=== PATIENT | male | born 1950 | race Caucasian/White ===

== ENCOUNTER 2016-12-22 13:18 | Inpatient (IN) | payer MEDICARE, OTHER ==
[~2016-12-22] VITALS: Ht 182.9 cm; Wt 63.0 kg
--- NOTE | 2016-12-22 13:48 | ERD ---
ER Documentation Chief Complaint Date/Time DATE: 12/22/16 TIME: 13:46 Chief Complaint BIB RA39 LEFT ELBOW INJURY HPI Patient is a 66-year-old male who presents with pain and swelling to the left elbow after mechanical slip and fall. Patient is left-hand dominant. He denies head trauma, chest or abdominal trauma. He denies loss of consciousness. He denies dizziness. He denies other injury. A staff member in the home where he lives witnessed the fall and states that he tripped on a carpet. The patient is on Coumadin. ROS All systems reviewed and are negative except as per history of present illness. Medications Home Meds Reported Medications Losartan Potassium* (Losartan Potassium*) 50 Mg Tablet, 50 MG PO DAILY, TAB 12/22/16 Simvastatin* (Zocor*) 40 Mg Tablet, 40 MG PO QHS, #30 TAB 12/22/16 Warfarin Sodium* (Coumadin*) 5 Mg Tablet, 5 MG PO DAILY, TAB 12/22/16 Digoxin* (Digitek*) 250 Mcg Tablet, 0.25 MG PO DAILY, TAB 12/22/16 Allergies Allergies: Coded Allergies: No Known Allergy (Unverified , 12/22/16) PMhx/Soc Past medical history: "Brittle bone disease ", valvular heart disease Past surgical history: Denies Social history: Denies tobacco or alcohol. History of Surgery: No Anesthesia Reaction: No Hx Neurological Disorder: No Hx Respiratory Disorders: No Hx Cardiac Disorders: Yes (heart valve defect) Hx Psychiatric Problems: No Hx Miscellaneous Medical Probl: Yes (osteogenesis,MULTIPLE FX) Hx Alcohol Use: No Hx Substance Use: No Hx Tobacco Use: No Smoking Status: Never smoker FmHx Family History: No coronary disease, No diabetes Physical Exam Vitals Vital Signs Date Time Temp Pulse Resp B/P Pulse Ox O2 Delivery O2 Flow Rate FiO2 12/22/16 17:34 98.3 91 20 129/80 98 Room Air 12/22/16 13:23 98.0 87 16 135/84 97 Physical Exam Const: Alert, no acute distress Head: Atraumatic Eyes: Normal Conjunctiva, no pallor, no icterus ENT: Normal External Ears, Nose and Mouth. Moist mucous membranes Neck: Full range of motion..~ No meningismus. No midline tenderness Resp: Clear to auscultation bilaterally, no wheezes, no rales Cardio: Regular rate and rhythm, no murmurs Abd: Soft, non tender, non distended. Normal bowel sounds Skin: No petechiae or rashes Back: No midline or flank tenderness Ext: No cyanosis, or edema. Deformity to left elbow with tenderness. Skin intact. Compartments soft. 2+ radial pulse. Moves and feels all digits. Neur: Awake and alert, cranial nerves II through XII intact bilaterally, strength and sensation full in 4 extremities. Psych: Normal Mood and Affect Result Diagram: 12/22/16 1410 12/22/16 1410 Results 24 hrs Laboratory Tests Test 12/22/16 14:10 White Blood Count 7.010^3/ul Red Blood Count 4.5710^6/ul Hemoglobin 14.8g/dl Hematocrit 42.1% Mean Corpuscular Volume 92.1fl Mean Corpuscular Hemoglobin 32.4pg Mean Corpuscular Hemoglobin Concent 35.2g/dl Red Cell Distribution Width 12.5% Platelet Count 69076^3/UL Mean Platelet Volume 10.7fl Neutrophils % 71.3% Lymphocytes % 14.1% Monocytes % 11.2% Eosinophils % 2.4% Basophils % 0.4% Nucleated Red Blood Cells % 0.0/100WBC Neutrophils # 5.010^3/ul Lymphocytes # 1.010^3/ul Monocytes # 0.810^3/ul Eosinophils # 0.210^3/ul Basophils # 0.010^3/ul Nucleated Red Blood Cells # 0.010^3/ul Prothrombin Time 28.9Sec Prothrombin Time Ratio 2.3 INR International Normalized Ratio 2.68 Activated Partial Thromboplast Time 34.9Sec Sodium Level 141mmol/L Potassium Level 3.9mmol/L Chloride Level 102mmol/L Carbon Dioxide Level 26mmol/L Anion Gap 17 Blood Urea Nitrogen 19mg/dl Creatinine 0.90mg/dl Glucose Level 160mg/dl Calcium Level 8.9mg/dl Current Medications Medications (Trade) Dose Ordered Sig/René Route PRN Reason Start Time Stop Time Status Last Admin Dose Admin Acetaminophen/ Hydrocodone Bitart ([place] (10/325)) 1 tab ONCE ONCE PO 12/22/16 14:00 12/22/16 14:01 DC 12/22/16 14:45 Morphine Sulfate (morphine) 4 mg ONCE STAT IV 12/22/16 16:22 12/22/16 16:23 DC 12/22/16 16:43 Ondansetron HCl (Zofran Inj) 4 mg BRIDGE ORDER PRN IV NAUSEA AND/OR VOMITING 12/22/16 17:30 12/23/16 17:29 Acetaminophen (Tylenol Tab) 650 mg ER BRIDGE PRN PO MILD PAIN/FEVER 12/22/16 17:30 12/23/16 17:29 IV Flush (NS 3 ml) 3 ml PER PROTOCOL IV 12/22/16 17:30 Ondansetron HCl (Zofran Inj) 4 mg Q6H PRN IV NAUSEA AND/OR VOMITING 12/22/16 17:30 Acetaminophen (Tylenol Tab) 650 mg Q6H PRN PO PAIN LEVEL 1-3 OR FEVER 12/22/16 17:30 Acetaminophen/ Hydrocodone Bitart ([place] (5/325)) 1 tab Q6H PRN PO MODERATE PAIN LEVEL 4-6 12/22/16 17:30 Morphine Sulfate (morphine) 2 mg Q4H PRN IV SEVERE PAIN LEVEL 7-10 12/22/16 17:30 Docusate Sodium (Colace) 100 mg Q12H PRN PO CONSTIPATION 12/22/16 17:30 Magnesium Hydroxide (Milk Of Mag) 30 ml DAILY PRN PO CONSTIPATION 12/22/16 17:30 Sodium Biphosphate/ Sodium Phosphate (Fleet Enema) 133 ml DAILY PRN [place] CONSTIPATION 12/22/16 17:30 Pantoprazole 40 mg 40 mg DAILY@06 PO 12/23/16 06:00 Sodium Chloride (1/2 NS) 1,000 ml @ 75 mls/hr [id number] IV 12/22/16 17:17 Lorazepam (Ativan) 0.5 mg Q6H PRN IV ANXIETY 12/22/16 17:30 Albuterol/ Ipratropium (Duoneb) 3 ml Q4H RESP THERAPY PRN HHN SHORTNESS OF BREATH 12/22/16 17:30 Hydralazine HCl (Apresoline) 10 mg Q6H PRN IV ELEVATED BLOOD PRESSURE 12/22/16 17:30 Nitroglycerin (Nitroglycerin (Sl Tab) 0.4 Mg) 1 tab Q5M PRN SL ANGINA 12/22/16 17:30 Digoxin (Digoxin) 0.25 mg DAILY PO 12/23/16 09:00 Atorvastatin Calcium (Lipitor) 20 mg DAILY@21 PO 12/22/16 21:00 Phytonadione (Vitamin K) 2.5 mg ONCE ONCE IM 12/22/16 17:30 12/22/16 17:31 DC Procedures/MDM MDM: Patient is a 66-year-old male with mechanical ground-level fall and injury to his elbow. The patient has evidence of a comminuted and displaced fracture. Serial neurovascular exams are unremarkable. He does have a large hemarthrosis and hematoma, and he is on warfarin with a INR of 2.7. Type and screen was sent for likely reversal of anticoagulation prior to surgical repair. The patient was splinted in a long-arm posterior splint. There are no signs of secondary injury and no signs of head trauma. I discussed the case with Dr. Maxwell, the orthopedic surgeon on-call, and he will arrange for surgery later today or tomorrow. The patient will be admitted by Dr. Ceja. Departure Diagnosis: Primary Impression: Supracondylar fracture of humerus Encounter type: initial encounter Fracture type: closed Laterality: left Qualified Code: S42.412A - Supracondylar fracture of humerus, left, closed, initial encounter Additional Impressions: Warfarin-induced coagulopathy Atrial fibrillation Atrial fibrillation type: chronic Qualified Code: I48.2 - Chronic atrial fibrillation Condition: Stable ROMAN LOWERY MD Dec 22, 2016 13:48
[2016-12-22] MEDS ORDERED: HYDROCODONE/APAP (10/325) TAB PO ONE (14:00)
[2016-12-22 14:30] LABS: BASOPHILS % 0.4 % (0.0-2.0); EOSINOPHILS # 0.2 10^3/ul (0.0-0.5); EOSINOPHILS % 2.4 % (0.0-7.0); HEMATOCRIT 42.1 % (42.0-52.0); HEMOGLOBIN 14.8 g/dl (14.0-18.0); LYMPHOCYTES % 14.1 % (15.0-51.0); MEAN CORPUSCULAR HEMOGLOBIN 32.4 pg (29.0-33.0); MEAN CORPUSCULAR HGB CONC 35.2 g/dl (32.0-37.0); MEAN CORPUSCULAR VOLUME 92.1 fl (82.0-101.0); MEAN PLATELET VOLUME 10.7 fl (7.4-10.4); MONOCYTE # 0.8 10^3/ul (0.3-0.9); MONOCYTES % 11.2 % (0.0-11.0); NEUTROPHILS % 71.3 % (39.0-77.0); PLATELET COUNT 157 10^3/UL (140-415); RED BLOOD COUNT 4.57 10^6/ul (4.70-6.10); RED CELL DISTRIBUTION WIDTH 12.5 % (11.5-14.5)
--- NOTE | 2016-12-22 14:39 | RADRPT ---
PROCEDURE: XR Elbow. CLINICAL INDICATION: Trauma TECHNIQUE: Three views of the left elbow are available for review COMPARISON: None available FINDINGS: There is a comminuted and displaced fracture involving the condylar/supracondylar region of the norma nino. There is posterior angulation of the distal fragments. The capitellum and trochlea may still be aligned with the proximal radius and ulna, although evaluation is limited due to fragment overlap . The fracture is age indeterminate. There is marked soft tissue swelling. IMPRESSION: 1. Comminuted, dorsally displaced and angulated fracture of the supracondylar/transcondylar region of the distal humerus, as detailed above. 2. Marked soft tissue swelling. RPTAT: TT .Fady Bills MD, Date Time Electronically viewed and signed by .Fady Bills MD, on 12/22/2016 14:39 .d/
[2016-12-22 14:51] LABS: INR 2.68; PROTIME 28.9 Sec (12.2-14.2); PT RATIO 2.3
[2016-12-22 14:52] LABS: PARTIAL THROMBOPLASTIN TIME 34.9 Sec (25.0-35.0)
[2016-12-22 15:04] LABS: CALCIUM 8.9 mg/dl (8.4-10.2); CREATININE 0.9 mg/dl (0.61-1.24); POTASSIUM 3.9 mmol/L (3.5-5.1)
[2016-12-22] MEDS ORDERED: morphine 4 MG/ML VIAL IV STA (16:22)
[2016-12-22] MEDS ORDERED: DIGO250T PO (16:39)
[2016-12-22] MEDS ORDERED: LOSA50TA6 PO (16:40)
[2016-12-22] MEDS ORDERED: SIMV40TA2 PO (16:40)
[2016-12-22] MEDS ORDERED: WARF5TAB72 PO (16:40)
[2016-12-22] MEDS ORDERED: ACETAMINOPHEN 325 MG TAB PO PRN ×2 (17:30)
[2016-12-22] MEDS ORDERED: PHYTONADIONE 10 MG/ML INJ IM ONE (17:30)
[2016-12-22] MEDS ORDERED: NA PHOSPHATE/BIPHOS 133 ML ENEMA PR PRN (17:30)
[2016-12-22] MEDS ORDERED: ALBUTEROL/IPRATROPIUM (NEB) 3 ML AMP HHN PRN (17:30)
[2016-12-22] MEDS ORDERED: NITROGLYCERIN (SL) 0.4 MG TAB SL PRN (17:30)
[2016-12-22] MEDS ORDERED: hydrALAzine 20 MG INJ IV PRN (17:30)
[2016-12-22] MEDS ORDERED: ONDANSETRON 4 MG INJ IV PRN ×2 (17:30)
[2016-12-22] MEDS ORDERED: DOCUSATE SODIUM 100 MG CAP PO PRN (17:30)
[2016-12-22] MEDS ORDERED: HYDROCODONE/APAP (5/325) TAB PO PRN (17:30)
[2016-12-22] MEDS ORDERED: NACL 0.9% 3 ML SYG IV SCH (17:30)
[2016-12-22] MEDS ORDERED: LORAZEPAM 2 MG INJ IV PRN (17:30)
--- NOTE | 2016-12-22 19:25 | HP ---
Date/Time of Note Date/Time of Note DATE: 12/22/16 TIME: 19:18 Assessment/Plan VTE Prophylaxis VTE Prophylaxis Intervention: SCD's Assessment/Plan Chief Complaint/Hosp Course Assessment and plan: 66-year-old male history of valvular heart surgery, atrial fibrillation, on Coumadin, who presents status post fall with left elbow fracture, and supratherapeutic INR 2.68. 1. Status post fall with elbow fracture: We will admit patient to [facility] floor. Follow-up orthopedic surgery consult. Likely patient will benefit from possible surgery. Check TSH A1c lipid panel. Pain control medications. 2. Supratherapeutic INR: We will hold patient's Coumadin for now. We will give vitamin K 2.5 mg 1 as well given the fact he may need surgery. Check INR later this evening and in the morning 3. Atrial fibrillation: Monitor heart rate for now, as mentioned above holding Coumadin 4. History of valvular heart surgery: Monitor for now, if there are any abnormalities consider cardiology consult 5. Hypertension: Continue current medications Problems: HPI/ROS Admit Date/Time Admit Date/Time Hx of Present Illness 66-year-old male past medical history of atrial fibrillation on Coumadin at home , valvular heart surgery, questionable high cholesterol, questionable hypertension, "brittle bone disease ", who presents status post fall. It is unclear if the patient was at home or at work, patient gives limited history, per ER documentation he apparently was at some kind of convalescent home and tripped and fell over the carpet. Denied any chest pain or palpitations or dizziness before or after the event. When he arrived to the ER, x-ray of the left elbow showed a comminuted, dorsally displaced and angulated fracture of the supracondylar/transcondylar region of the distal humerus. Orthopedic surgery team was consulted who are going to come and evaluate the patient. Patient also was found with an elevated INR of 2.68. No signs of any upper or lower GI bleeding. Full review of systems cannot be obtained other than what has been mentioned in this HPI presently. PMH/Family/Social Past Surgical History Past Surgical Hx: other (Valvular heart surgery, knee surgery, hip surgery) Family History Significant Family History: no pertinent family hx Social History Alcohol Use: none Smoking Status: Never smoker Drug Use: none Exam/Review of Systems Vital Signs Vitals Vital Signs Date Time Temp Pulse Resp B/P Pulse Ox O2 Delivery O2 Flow Rate FiO2 12/22/16 18:30 82 20 149/82 98 Room Air 12/22/16 17:34 98.3 Exam Exam Gen: Alert, no acute distress Head: Atraumatic Eyes: Normal Conjunctiva, no pallor, no icterus ENT: Normal External Ears, Nose and Mouth. Moist mucous membranes Neck: Full range of motion..~ No meningismus. No midline tenderness Resp: Clear to auscultation bilaterally, no wheezes, no rales Cardio: Regular rate and rhythm, no murmurs Abd: Soft, non tender, non distended. Normal bowel sounds Back: No midline or flank tenderness Ext: No cyanosis, or edema. Left elbow covered in sling, skin appears intact. 2+ radial pulse. Moves and feels all digits. Neur: Awake and alert, cranial nerves II through XII intact bilaterally, strength and sensation full in 4 extremities. Psych: Normal Mood and Affect Labs Result Diagram: 12/22/16 1410 12/22/16 1410 Medications Medications Current Medications Ondansetron HCl (Zofran Inj) 4 mg Q6H PRN IV NAUSEA AND/OR VOMITING; Start 12/22 at 17:30 Acetaminophen (Tylenol Tab) 650 mg Q6H PRN PO PAIN LEVEL 1-3 OR FEVER; Start at 17:30 Acetaminophen/ Hydrocodone Bitart ([place] (5/325)) 1 tab Q6H PRN PO MODERATE PAIN LEVEL 4-6; Start 12/22/16 at 17:30 Morphine Sulfate (morphine) 2 mg Q4H PRN IV SEVERE PAIN LEVEL 7-10; Start at 17:30 Docusate Sodium (Colace) 100 mg Q12H PRN PO CONSTIPATION; Start 12/22/16 at 17: 30 Magnesium Hydroxide (Milk Of Mag) 30 ml DAILY PRN PO CONSTIPATION; Start at 17:30 Sodium Biphosphate/ Sodium Phosphate (Fleet Enema) 133 ml DAILY PRN [place] CONSTIPATION; Start 12/22/16 at 17:30 Pantoprazole 40 mg 40 mg DAILY@06 PO ; Start 12/23/16 at 06:00 Sodium Chloride (1/2 NS) 1,000 ml @ 75 mls/hr [id number] IV ; Start 12/22/16 at 17: 17 Lorazepam (Ativan) 0.5 mg Q6H PRN IV ANXIETY; Start 12/22/16 at 17:30 Hydralazine HCl (Apresoline) 10 mg Q6H PRN IV ELEVATED BLOOD PRESSURE; Start at 17:30 Nitroglycerin (Nitroglycerin (Sl Tab) 0.4 Mg) 1 tab Q5M PRN SL ANGINA; Start at 17:30 Digoxin (Digoxin) 0.25 mg DAILY PO ; Start 12/23/16 at 09:00 Atorvastatin Calcium (Lipitor) 20 mg DAILY@21 PO ; Start 12/22/16 at 21:00 ROGER JUÁREZ Dec 22, 2016 19:25
[2016-12-22 20:26] VITALS: TEMP 98
[2016-12-22 20:57] VITALS: Ht 182.9 cm; Wt 63.0 kg
[2016-12-22 21:00] VITALS: BP 109/69; PULSE 81; RESP 20
[2016-12-22 22:00] VITALS: BP 109/69; RESP 20
[2016-12-22] MEDS: ATORVASTATIN 20 MG TAB PO SCH (22:06)
[2016-12-22] MEDS: SOD CHLORIDE 0.45% 1,000 ML IV SCH (22:09)
[2016-12-22 23:46] LABS: INR 3.2; PROTIME 33.2 Sec (12.2-14.2); PT RATIO 2.6
[2016-12-23 02:00] VITALS: BP 115/68; RESP 20
[2016-12-23] MEDS: PANTOPRAZOLE (EC) 40 MG TAB PO SCH (05:33)
[2016-12-23] MEDS: morphine 4 MG/ML VIAL IV PRN ×3 (05:34→21:44)
[2016-12-23 06:24] LABS: BASOPHILS % 0.1 % (0.0-2.0); EOSINOPHILS % 0.1 % (0.0-7.0); HEMATOCRIT 38.4 % (42.0-52.0); HEMOGLOBIN 13.4 g/dl (14.0-18.0); LYMPHOCYTES # 0.6 10^3/ul (0.8-2.9); LYMPHOCYTES % 7.4 % (15.0-51.0); MEAN CORPUSCULAR HEMOGLOBIN 32.2 pg (29.0-33.0); MEAN CORPUSCULAR HGB CONC 34.9 g/dl (32.0-37.0); MEAN CORPUSCULAR VOLUME 92.3 fl (82.0-101.0); MEAN PLATELET VOLUME 10.7 fl (7.4-10.4); MONOCYTE # 0.7 10^3/ul (0.3-0.9); MONOCYTES % 8.2 % (0.0-11.0); NEUTROPHIL # 6.8 10^3/ul (1.6-7.5); NEUTROPHILS % 83.8 % (39.0-77.0); PLATELET COUNT 154 10^3/UL (140-415); RED BLOOD COUNT 4.16 10^6/ul (4.70-6.10); RED CELL DISTRIBUTION WIDTH 12.5 % (11.5-14.5); WHITE BLOOD COUNT 8.2 10^3/ul (4.8-10.8)
[2016-12-23] MEDS: SOD CHLORIDE 0.45% 1,000 ML IV SCH ×2 (06:37→12:09)
[2016-12-23 06:45] LABS: INR 2.58; PT RATIO 2.2
[2016-12-23 06:53] LABS: CALCIUM 8.6 mg/dl (8.4-10.2); CHOL/HDL RATIO 4.1 RATIO; CREATININE 0.76 mg/dl (0.61-1.24); MAGNESIUM 1.8 mg/dl (1.7-2.5); POTASSIUM 4.1 mmol/L (3.5-5.1)
[2016-12-23 07:22] LABS: THYROID STIMULATING HORMONE 1.37 MIU/L (0.465-4.680)
[2016-12-23 08:25] VITALS: BP 118/70; RESP 18
[2016-12-23] MEDS: DIGOXIN 0.25 MG TAB PO SCH (08:49)
--- NOTE | 2016-12-23 13:42 | RADRPT ---
AMENDMENT: 12/23/2016 3:40:00 PM Min Delacruz M.D The patient was brought back to scan the elbow. ROCEDURE: CT LEFT ELBOW. CLINICAL INDICATION: Fracture. Supracondylar fracture. TECHNIQUE: CT scan of the left shoulder was performed on a multi -slice scanner. No IV contrast w as administered. Coronal and sagittal reformatted and 3-D images were obtained from the axial sour ce images. The total exam DLP equals 432.82 mGy-cm. The CDTI volume was 18.47 mGy. The patient will return seen at the left elbow imaged and the left supracondylar fracture will be re ported upon. One or more of the following dose reduction techniques were used: Automated exposure control. Adjustment of the mA and/or kV according to patient size . Use of iterative reconstruction technique. Images were reviewed on a high-resolution PACS workstation. COMPARISON: None. FINDINGS: There is a markedly comminuted supracondylar fracture as well as comminuted olecranon fracture. Bot h fractures are displaced. The supracondylar fracture is displaced 14 mm dorsally and there is 6 de grees of posterior angulation. The supracondylar fracture extends to the intercondylar humerus as an intra-articular component. There is a 5 mm gap along the dorsal aspect of the humerus at the fract ure site. The olecranon fracture is displaced 7 mm dorsally. The bones are osteoporotic. There is marked surrounding soft tissue swelling. No radial head fracture is identified. IMPRESSION: 1. Comminuted displaced and mildly angulated distal humeral supracondylar fracture. 2. Comminuted mildly displaced olecranon fracture. 3. Osteoporosis. RPTAT: XX PROCEDURE: CT LEFT SHOULDER. CLINICAL INDICATION: Fracture. Supracondylar fracture. TECHNIQUE: CT scan of the left shoulder was performed on a multi -slice scanner. No IV contrast w as administered. Coronal and sagittal reformatted images were obtained from the axial source image s. The total exam DLP equals 432.82 mGy-cm. The CDTI volume was 18.47 mGy. The patient will return seen at the left elbow imaged and the left supracondylar fracture will be re ported upon. One or more of the following dose reduction techniques were used: - Automated exposure control. - Adjustment of the mA and/or kV according to patient size . - Use of iterative reconstruction technique. Images were reviewed on a high-resolution PACS workstation. COMPARISON: None. FINDINGS: Osseous acromion outlet: The acromion is type 2. Coronal images demonstrate mild lateral downslopin g. Rotator Cuff: The supraspinatus tendon density is intact. No muscle belly atrophy is seen. No evid ence for tendon gap. Osseous structures: No fracture within the field of view. On reviewing the patient's chart, there i s a supracondylar fracture of the distal humerus. Other findings: There is soft tissue swelling at the lower aspect of the field of view likely relate d to the patient's supracondylar distal humeral fracture. IMPRESSION: 1. No proximal humeral fracture is seen. We did not image the distal humerus at the site of the burrell pracondylar fracture near the elbow. I will request that the patient return for images of the elbow . 2. Soft tissue swelling distally. 3. No evidence for rotator cuff rupture. The patient will return for the left elbow examination to evaluate the supracondylar fracture. At t hat time I will end this report. RPTAT: XX .Min Delacruz MD, MD Date Time Electronically viewed and signed by .Min Delacruz MD, on 12/23/2016 15:39 .T/
--- NOTE | 2016-12-23 14:31 | PN ---
Date/Time of Note Date/Time of Note DATE: 12/23/16 TIME: 14:28 Assessment/Plan VTE Prophylaxis VTE Prophylaxis Intervention: SCD's Lines/Catheters IV Catheter Type (from Nrsg): Peripheral IV Urinary Cath still in place: No Assessment/Plan Chief Complaint/Hosp Course Assessment and plan: 66-year-old male history of valvular heart surgery, atrial fibrillation, on Coumadin, who presents status post fall with left elbow fracture, and supratherapeutic INR 2.68. 1. Status post fall with elbow fracture-getting morphine for pain control as needed - Follow-up orthopedic surgery consult. -Follow-up TSH A1c lipid panel. Continue pain control medications. -Given his cardiac history, orthopedic surgery team recommending cardiac clearance before operation can be attempted. We will consult cardiology team for this given his history of atrial fibrillation and valve heart surgery in the past. 2. Supratherapeutic INR: Today it is 2.5. - Continue to hold patient's Coumadin for now. - We will give another dose of vitamin K 2.5 mg 1 as well given the fact he may need surgery. - Check INR in the morning 3. Atrial fibrillation: Monitor heart rate for now, as mentioned above holding Coumadin 4. History of valvular heart surgery: Monitor for now, holding Coumadin, awaiting cardiology consult for clearance. 5. Hypertension: Continue current medications Problems: Subjective 24 Hr Interval Summary Free Text/Dictation No acute events overnight, evaluated by orthopedic surgery team. Still getting morphine for elbow pain. Exam/Review of Systems Vital Signs Vitals Vital Signs Date Time Temp Pulse Resp B/P Pulse Ox O2 Delivery O2 Flow Rate FiO2 12/23/16 08:25 98.1 77 18 118/70 95 12/22/16 21:00 Room Air Intake and Output 12/22/16 12/22/16 12/23/16 15:00 23:00 07:00 Intake Total 525 ml Output Total 200 ml Balance 325 ml Exam Gen: Alert, no acute distress Head: Atraumatic Eyes: Normal Conjunctiva, no pallor, no icterus ENT: Normal External Ears, Nose and Mouth. Moist mucous membranes Neck: Full range of motion..~ No meningismus. No midline tenderness Resp: Clear to auscultation bilaterally, no wheezes, no rales Cardio: Regular rate and rhythm, no murmurs Abd: Soft, non tender, non distended. Normal bowel sounds Back: No midline or flank tenderness Ext: No cyanosis, or edema. Left elbow covered in sling, skin appears intact. 2+ radial pulse. Moves and feels all digits. Neur: Awake and alert, cranial nerves II through XII intact bilaterally, strength and sensation full in 4 extremities. Psych: Normal Mood and Affect Results Result Diagram: 12/23/16 0514 12/23/16 0514 Results 24 hrs Laboratory Tests Test 12/22/16 19:10 12/22/16 23:16 12/23/16 05:14 Troponin I < 0.012 Prothrombin Time 33.2 H 28.0 H Prothrombin Time Ratio 2.6 2.2 INR International Normalized Ratio 3.20 2.58 White Blood Count 8.2 Red Blood Count 4.16 L Hemoglobin 13.4 L Hematocrit 38.4 L Mean Corpuscular Volume 92.3 Mean Corpuscular Hemoglobin 32.2 Mean Corpuscular Hemoglobin Concent 34.9 Red Cell Distribution Width 12.5 Platelet Count 154 Mean Platelet Volume 10.7 H Neutrophils % 83.8 H Lymphocytes % 7.4 L Monocytes % 8.2 Eosinophils % 0.1 Basophils % 0.1 Nucleated Red Blood Cells % 0.0 Neutrophils # 6.8 Lymphocytes # 0.6 L Monocytes # 0.7 Eosinophils # 0.0 Basophils # 0.0 Nucleated Red Blood Cells # 0.0 Sodium Level 141 Potassium Level 4.1 Chloride Level 102 Carbon Dioxide Level 27 Anion Gap 16 Blood Urea Nitrogen 15 Creatinine 0.76 Glucose Level 120 # Hemoglobin A1c 5.2 Calcium Level 8.6 Phosphorus Level 3.0 Magnesium Level 1.8 Triglycerides Level 63 Cholesterol Level 123 LDL Cholesterol, Calculated 80 HDL Cholesterol 30 Cholesterol/HDL Ratio 4.1 Thyroid Stimulating Hormone (TSH) 1.370 Medications Medications Current Medications Ondansetron HCl (Zofran Inj) 4 mg Q6H PRN IV NAUSEA AND/OR VOMITING; Start 12/22 at 17:30 Acetaminophen (Tylenol Tab) 650 mg Q6H PRN PO PAIN LEVEL 1-3 OR FEVER; Start at 17:30 Acetaminophen/ Hydrocodone Bitart ([place] (5/325)) 1 tab Q6H PRN PO MODERATE PAIN LEVEL 4-6; Start 12/22/16 at 17:30 Morphine Sulfate (morphine) 2 mg Q4H PRN IV SEVERE PAIN LEVEL 7-10 Last administered on 12/23/16 10:04; Admin Dose 2 MG; Start 12/22/16 at 17:30 Docusate Sodium (Colace) 100 mg Q12H PRN PO CONSTIPATION; Start 12/22/16 at 17: 30 Magnesium Hydroxide (Milk Of Mag) 30 ml DAILY PRN PO CONSTIPATION; Start at 17:30 Sodium Biphosphate/ Sodium Phosphate (Fleet Enema) [address] CONSTIPATION; Start 12/22/16 at 17:30 Pantoprazole 40 mg 40 mg DAILY@06 PO Last administered on 12/23/16 05:33; Admin Dose 40 MG; Start 12/23/16 at 06:00 Sodium Chloride (1/2 NS) 1,000 ml @ 75 mls/hr [id number] IV Last administered on 12/23/16 12:09; Admin Dose 75 MLS/HR; Start 12/22/16 at 17:17 Lorazepam (Ativan) 0.5 mg Q6H PRN IV ANXIETY; Start 12/22/16 at 17:30 Hydralazine HCl (Apresoline) 10 mg Q6H PRN IV ELEVATED BLOOD PRESSURE; Start at 17:30 Nitroglycerin (Nitroglycerin (Sl Tab) 0.4 Mg) 1 tab Q5M PRN SL ANGINA; Start at 17:30 Digoxin (Digoxin) 0.25 mg DAILY PO Last administered on 12/23/16 08:49; Admin Dose 0.25 MG; Start 12/23/16 at 09:00 Atorvastatin Calcium (Lipitor) 20 mg DAILY@21 PO Last administered on 12/22/16 22:06; Admin Dose 20 MG; Start 12/22/16 at 21:00 ROGER JUÁREZ Dec 23, 2016 14:31
--- NOTE | 2016-12-23 15:04 | RADRPT ---
Vent Rate: 73 bpm RR Interval: 0 msec OR Interval: 182 msec QRS Duration: 92 msec QT Interval: 376 msec QTC Interval: 414 msec P-R-T [place]: 62 - 62 - -49 degrees Sinus rhythm with occasional premature ventricular complexes ST amp; T wave abnormality, consider inferolateral ischemia Abnormal ECG Electronically Signed By: Alfred Johns [id number]
[2016-12-23 15:28] VITALS: BP 137/106; RESP 18
--- NOTE | 2016-12-23 18:04 | CONS ---
Date/Time of Note Date/Time of Note DATE: 12/23/16 TIME: 17:56 Assessment/Plan Assessment/Plan Chief Complaint/Hosp Course Assessment: Pre-operative cardiac evaluation - planned for left elbow surgery Acute left distal humerus fracture Status post mechanical fall Heart valve replacement - details unknown History of atrial fibrillation, status post radiofrequency ablation - currently sinus rhythm Hypertension Dyslipidemia Recommendations: -obtain transthoracic echocardiogram -obtain chest x-ray -continue digoxin 0.25mg daily, check digoxin level -continue statin -monitor blood pressure, resume on anti-hypertensive medications as needed -holding warfarin for surgery, also received vitamin K Problems: Consultation Date/Type/Reason Admit Date/Time Type of Consultation: Cardiology Reason for Consultation pre-operative evaluation Hx of Present Illness The patient is a 66 year-old male who presents status post fall with a left distal humerus fracture. He reports tripping and falling, and denies lightheadedness or loss of consciousness. He denies any recent chest pain or shortness of breath. He has a history of heart valve replacement (details unknown) and atrial fibrillation status post radiofrequency ablation. EKG shows sinus rhythm with PACs. He is on chronic anticoagulation with warfarin. 14 point review of systems negative other than per HPI. Past Medical History Heart valve replacement - details unknown History of atrial fibrillation, status post radiofrequency ablation Hypertension Dyslipidemia Past Surgical History heart valve replacement right hip surgery right knee surgery Family History Significant Family History: no pertinent family hx Social History Alcohol Use: none Smoking Status: Never smoker Drug Use: none Exam/Review of Systems Vital Signs Vitals Vital Signs Date Time Temp Pulse Resp B/P Pulse Ox O2 Delivery O2 Flow Rate FiO2 12/23/16 15:28 98.5 84 18 137/106 97 12/22/16 21:00 Room Air Intake and Output 12/22/16 12/22/16 12/23/16 15:00 23:00 07:00 Intake Total 525 ml Output Total 200 ml Balance 325 ml Exam Constitutional: alert, well developed Psych: nl mood/affect, no complaints Head: atraumatic, normocephalic Eyes: nl conjunctiva, nl lids ENMT: nl external ears & nose, nl nasal mucosa & septum Neck: non-tender, supple, No jvd Respiratory: clear to auscultation, normal air movement Cardiovascular: regular rate and rhythm Gastrointestinal: non-tender, soft Musculoskeletal: other (left arm in sling) Extremities: No clubbing, No cyanosis, No edema Results Result Diagram: 12/23/16 0514 12/23/16 0514 Results 24 hrs Laboratory Tests Test 12/22/16 19:10 12/22/16 23:16 12/23/16 05:14 Troponin I < 0.012 Prothrombin Time 33.2 H 28.0 H Prothrombin Time Ratio 2.6 2.2 INR International Normalized Ratio 3.20 2.58 White Blood Count 8.2 Red Blood Count 4.16 L Hemoglobin 13.4 L Hematocrit 38.4 L Mean Corpuscular Volume 92.3 Mean Corpuscular Hemoglobin 32.2 Mean Corpuscular Hemoglobin Concent 34.9 Red Cell Distribution Width 12.5 Platelet Count 154 Mean Platelet Volume 10.7 H Neutrophils % 83.8 H Lymphocytes % 7.4 L Monocytes % 8.2 Eosinophils % 0.1 Basophils % 0.1 Nucleated Red Blood Cells % 0.0 Neutrophils # 6.8 Lymphocytes # 0.6 L Monocytes # 0.7 Eosinophils # 0.0 Basophils # 0.0 Nucleated Red Blood Cells # 0.0 Sodium Level 141 Potassium Level 4.1 Chloride Level 102 Carbon Dioxide Level 27 Anion Gap 16 Blood Urea Nitrogen 15 Creatinine 0.76 Glucose Level 120 # Hemoglobin A1c 5.2 Calcium Level 8.6 Phosphorus Level 3.0 Magnesium Level 1.8 Triglycerides Level 63 Cholesterol Level 123 LDL Cholesterol, Calculated 80 HDL Cholesterol 30 Cholesterol/HDL Ratio 4.1 Thyroid Stimulating Hormone (TSH) 1.370 Medications Medications Current Medications Ondansetron HCl (Zofran Inj) 4 mg Q6H PRN IV NAUSEA AND/OR VOMITING; Start 12/22 at 17:30 Acetaminophen (Tylenol Tab) 650 mg Q6H PRN PO PAIN LEVEL 1-3 OR FEVER; Start at 17:30 Acetaminophen/ Hydrocodone Bitart ([place] (5/325)) 1 tab Q6H PRN PO MODERATE PAIN LEVEL 4-6; Start 12/22/16 at 17:30 Morphine Sulfate (morphine) 2 mg Q4H PRN IV SEVERE PAIN LEVEL 7-10 Last administered on 12/23/16t 10:04; Admin Dose 2 MG; Start 12/22/16 at 17:30 Docusate Sodium (Colace) 100 mg Q12H PRN PO CONSTIPATION; Start 12/22/16 at 17: 30 Magnesium Hydroxide (Milk Of Mag) 30 ml DAILY PRN PO CONSTIPATION; Start at 17:30 Sodium Biphosphate/ Sodium Phosphate (Fleet Enema) 133 ml DAILY PRN [place] CONSTIPATION; Start 12/22/16 at 17:30 Pantoprazole 40 mg 40 mg DAILY@06 PO Last administered on 12/23/16 05:33; Admin Dose 40 MG; Start 12/23/16 at 06:00 Sodium Chloride (1/2 NS) 1,000 ml @ 75 mls/hr [id number] IV Last administered on 12/23/16 12:09; Admin Dose 75 MLS/HR; Start 12/22/16 at 17:17 Lorazepam (Ativan) 0.5 mg Q6H PRN IV ANXIETY; Start 12/22/16 at 17:30 Hydralazine HCl (Apresoline) 10 mg Q6H PRN IV ELEVATED BLOOD PRESSURE; Start at 17:30 Nitroglycerin (Nitroglycerin (Sl Tab) 0.4 Mg) 1 tab Q5M PRN SL ANGINA; Start at 17:30 Digoxin (Digoxin) 0.25 mg DAILY PO Last administered on 12/23/16 08:49; Admin Dose 0.25 MG; Start 12/23/16 at 09:00 Atorvastatin Calcium (Lipitor) 20 mg DAILY@21 PO Last administered on 12/22/16 22:06; Admin Dose 20 MG; Start 12/22/16 at 21:00 LYDIA ELLISON MD Dec 23, 2016 18:04
[2016-12-23 20:00] VITALS: BP 107/67; RESP 20
[2016-12-23] MEDS: ATORVASTATIN 20 MG TAB PO SCH (21:38)
--- NOTE | 2016-12-23 23:30 | RADRPT ---
PROCEDURE: XR Chest. CLINICAL INDICATION: Preop TECHNIQUE: Single AP portable chest. COMPARISON: None. Chest x-ray FINDINGS: The cardiomediastinal silhouette is within normal limits of size. Sternotomy wires and aortic valvul ar prosthesis in place. Atherosclerotic calcification of the aorta. The lungs are clear without p leural effusion or focal consolidation. No pneumothorax. The osseous structures and soft tissues are unremarkable. IMPRESSION: 1. No evidence for active cardiopulmonary disease. RPTAT:AAJJ Kacy Grant Physician Date Time Electronically viewed and signed by Physician Malick on 12/23/2016 23:30 JEREMÍAS/
[2016-12-24 02:00] VITALS: BP 121/76; RESP 20
[2016-12-24] MEDS: SOD CHLORIDE 0.45% 1,000 ML IV SCH ×2 (04:06→18:16)
[2016-12-24] MEDS: PANTOPRAZOLE (EC) 40 MG TAB PO SCH (05:12)
[2016-12-24 06:44] LABS: BASOPHILS % 0.1 % (0.0-2.0); EOSINOPHILS # 0.2 10^3/ul (0.0-0.5); EOSINOPHILS % 2.3 % (0.0-7.0); HEMATOCRIT 37.3 % (42.0-52.0); LYMPHOCYTES # 0.9 10^3/ul (0.8-2.9); LYMPHOCYTES % 13.3 % (15.0-51.0); MEAN CORPUSCULAR HEMOGLOBIN 32.6 pg (29.0-33.0); MEAN CORPUSCULAR HGB CONC 34.9 g/dl (32.0-37.0); MEAN CORPUSCULAR VOLUME 93.5 fl (82.0-101.0); MEAN PLATELET VOLUME 10.5 fl (7.4-10.4); MONOCYTE # 0.9 10^3/ul (0.3-0.9); MONOCYTES % 12.7 % (0.0-11.0); NEUTROPHILS % 71.2 % (39.0-77.0); PLATELET COUNT 141 10^3/UL (140-415); RED BLOOD COUNT 3.99 10^6/ul (4.70-6.10); RED CELL DISTRIBUTION WIDTH 12.6 % (11.5-14.5)
[2016-12-24 07:02] LABS: CALCIUM 8.4 mg/dl (8.4-10.2); CREATININE 0.84 mg/dl (0.61-1.24); POTASSIUM 3.9 mmol/L (3.5-5.1)
[2016-12-24 08:00] VITALS: BP 117/68; RESP 18
[2016-12-24] MEDS: morphine 4 MG/ML VIAL IV PRN (08:12)
[2016-12-24] MEDS: DIGOXIN 0.25 MG TAB PO SCH (08:12)
[2016-12-24 11:26] VITALS: PULSE 70
[2016-12-24 14:00] VITALS: BP 113/72; RESP 18
[2016-12-24] MEDS: morphine 2 MG INJ IV PRN (14:16)
--- NOTE | 2016-12-24 16:18 | PN ---
Date/Time of Note Date/Time of Note DATE: 12/24/16 TIME: 16:16 Assessment/Plan VTE Prophylaxis VTE Prophylaxis Intervention: SCD's Lines/Catheters IV Catheter Type (from Nrs): Peripheral IV Urinary Cath still in place: No Assessment/Plan Chief Complaint/Hosp Course Assessment and plan: 66-year-old male history of valvular heart surgery, atrial fibrillation, on Coumadin, who presents status post fall with left elbow fracture, and supratherapeutic INR 2.68. 1. 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 This may complicate attempt to perform surgery, again we will try to finalize plan with orthopedic surgery team -Follow-up TSH A1c lipid panel. Continue pain control medications. -Regarding cardiac issues, appreciate cardiac consult. Continue to hold Coumadin for now, continue digoxin, follow-up INR. Follow-up echocardiogram 2. Supratherapeutic INR: 2.68 on admission -Again, continue to hold patient's Coumadin for now. - Check INR in the morning 3. Atrial fibrillation: Monitor heart rate for now, as mentioned above holding Coumadin 4. History of valvular heart surgery: Monitor for now, holding Coumadin, awaiting cardiology consult for clearance. 5. Hypertension: Continue current medications Problems: Subjective 24 Hr Interval Summary Free Text/Dictation Patient seen by cardiology and orthopedic surgery team yesterday. Still awaiting possible surgery on the left elbow. No acute events overnight. Exam/Review of Systems Vital Signs Vitals Vital Signs Date Time Temp Pulse Resp B/P Pulse Ox O2 Delivery O2 Flow Rate FiO2 12/24/16 14:00 98.7 85 18 113/72 97 12/22/16 21:00 Room Air Intake and Output 12/23/16 12/23/16 12/24/16 15:00 23:00 07:00 Intake Total 475 ml 650 ml 745 ml Output Total 800 ml 500 ml Balance 475 ml -150 ml 245 ml Exam Gen: Alert, no acute distress Head: Atraumatic Eyes: Normal Conjunctiva, no pallor, no icterus ENT: Normal External Ears, Nose and Mouth. Moist mucous membranes Neck: Full range of motion..~ No meningismus. No midline tenderness Resp: Clear to auscultation bilaterally, no wheezes, no rales Cardio: Regular rate and rhythm, no murmurs Abd: Soft, non tender, non distended. Normal bowel sounds Back: No midline or flank tenderness Ext: No cyanosis, or edema. Left elbow covered in sling, skin appears intact. 2+ radial pulse. Moves and feels all digits. Neur: Awake and alert, cranial nerves II through XII intact bilaterally, strength and sensation full in 4 extremities. Psych: Normal Mood and Affect Results Result Diagram: 12/24/1652312/24/16523 Results 24 hrs Laboratory Tests Test 12/24/16 05:24 White Blood Count 7.0 Red Blood Count 3.99 L Hemoglobin 13.0 L Hematocrit 37.3 L Mean Corpuscular Volume 93.5 Mean Corpuscular Hemoglobin 32.6 Mean Corpuscular Hemoglobin Concent 34.9 Red Cell Distribution Width 12.6 Platelet Count 141 Mean Platelet Volume 10.5 H Neutrophils % 71.2 Lymphocytes % 13.3 L Monocytes % 12.7 H Eosinophils % 2.3 Basophils % 0.1 Nucleated Red Blood Cells % 0.0 Neutrophils # 5.0 Lymphocytes # 0.9 Monocytes # 0.9 Eosinophils # 0.2 Basophils # 0.0 Nucleated Red Blood Cells # 0.0 Sodium Level 141 Potassium Level 3.9 Chloride Level 102 Carbon Dioxide Level 28 Anion Gap 15 Blood Urea Nitrogen 16 Creatinine 0.84 Glucose Level 100 Calcium Level 8.4 Digoxin Level 0.6 L Medications Medications Current Medications Ondansetron HCl (Zofran Inj) 4 mg Q6H PRN IV NAUSEA AND/OR VOMITING; Start 12/22 at 17:30 Acetaminophen (Tylenol Tab) 650 mg Q6H PRN PO PAIN LEVEL 1-3 OR FEVER; Start at 17:30 Acetaminophen/ Hydrocodone Bitart ([place] (5/325)) 1 tab Q6H PRN PO MODERATE PAIN LEVEL 4-6; Start 12/22/16 at 17:30 Docusate Sodium (Colace) 100 mg Q12H PRN PO CONSTIPATION; Start 12/22/16 at 17: 30 Magnesium Hydroxide (Milk Of Mag) 30 ml DAILY PRN PO CONSTIPATION; Start at 17:30 Sodium Biphosphate/ Sodium Phosphate (Fleet Enema) 133 ml DAILY PRN [place] CONSTIPATION; Start 12/22/16 at 17:30 Pantoprazole 40 mg 40 mg DAILY@06 PO Last administered on 12/24/16 05:12; Admin Dose 40 MG; Start 12/23/16 at 06:00 Sodium Chloride (1/2 NS) 1,000 ml @ 75 mls/hr [id number] IV Last administered on 12/24/16 04:06; Admin Dose 75 MLS/HR; Start 12/22/16 at 17:17 Lorazepam (Ativan) 0.5 mg Q6H PRN IV ANXIETY; Start 12/22/16 at 17:30 Hydralazine HCl (Apresoline) 10 mg Q6H PRN IV ELEVATED BLOOD PRESSURE; Start at 17:30 Nitroglycerin (Nitroglycerin (Sl Tab) 0.4 Mg) 1 tab Q5M PRN SL ANGINA; Start at 17:30 Digoxin (Digoxin) 0.25 mg DAILY PO Last administered on 12/24/16 08:12; Admin Dose 0.25 MG; Start 12/23/16 at 09:00 Atorvastatin Calcium (Lipitor) 20 mg DAILY@21 PO Last administered on 12/23/16 21:38; Admin Dose 20 MG; Start 12/22/16 at 21:00 Morphine Sulfate (morphine) 2 mg Q4H PRN IV SEVERE PAIN LEVEL 7-10 Last administered on 12/24/16 14:16; Admin Dose 2 MG; Start 12/24/16 at 12:00 ROGER JUÁREZ Dec 24, 2016 16:18
[2016-12-24 17:04] LABS: INR 1.67; PROTIME 19.8 Sec (12.2-14.2); PT RATIO 1.5
[2016-12-24 20:00] VITALS: BP 129/75; RESP 20
--- NOTE | 2016-12-24 20:07 | RADRPT ---
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 Physician: LYDIA LEDBETTER Quality: Technically Difficult Study Procedures: Transthoracic echocardiogram with 2D, M-Mode, and Doppler examination. Indications: Pre-op, history of AVR. 2D/M Mode Doppler Measurement Value Normal Ranges Measurement Value Normal Ranges AoR Diam MM 3.6 cm DAVID Vmax 1.0 cm2 LVIDd 2D 2.5 3.5 - 5.6 cm DAVID VTI 1.0 cm2 LVIDs 2D 1.6 2.1 - 4.1 cm AV Mean [place] 2.0 m/sec LVPWd 2D 1.4 0.6 - 1.1 cm AV Mean PG 17.8 mmHg IVSd 2D 1.5 0.6 - 1.1 cm AV Peak [place] 2.6 m/sec EDV 2D 21.8 cm3 AV Peak PG 27.8 mmHg ESV 2D 4.1 cm3 AV VTI 57.3 cm LA Dimen 2D 2.9 2.3 - 4.0 cm LVOT Mean [place] 0.6 m/sec LVOT Diam 2.0 cm LVOT Mean PG 1.6 mmHg LVOT Peak [place] 0.8 m/sec LVOT Peak PG 2.5 mmHg LVOT VTI 15.5 cm MV E Peak [place] 0.7 m/sec MV A Peak [place] 0.8 m/sec MV E/A 0.9 MV Decel Time 220 msec MV Decel Potter 3 MV E/A 0.9 TR Peak [place] 2.6 m/sec TR Peak PG 26.1 mmHg RVSP 29.1 mmHg Findings Left Ventricle: Appears to be normal left ventricular systolic function, not all wall imaged clearly. Normal left ventricular cavity size. Mild concentric left ventricular hypertrophy. Ejection fraction is visually estimated at 55 %. Tissue Doppler/Mitral Doppler indices are consistent with impaired relaxation (Stage I diastolic dysfunction). E/E`=7. Right Ventricle: Normal right ventricular size. Normal right ventricular systolic function. Left Atrium: The left atrium is normal in size. Right Atrium: The right atrium is normal in size. Atrial Septum: Normal atrial septum. Mitral Valve: Normal appearance of the mitral valve. Mild mitral annular calcification. No mitral valve regurgitation is seen. Aortic Valve: Aortic Valve Mechanical Prosthesis. Aortic valve Max velocity 2.60 m/sec. Max PG 28.00 mmHg. Mean PG 18.00 mmHg. Tricuspid Valve: Normal appearance of the tricuspid valve. Estimated peak PA systolic pressure 29 mmHg. There is trace tricuspid regurgitation. Pulmonic Valve: Pulmonic valve not well visualized. Pericardium: Normal pericardium with no significant pericardial effusion. Aorta: Normal aortic root. IVC: Normal size and normal respiratory collapse consistent with normal right atrial pressure. Pulmonary Artery: Not well visualized. Conclusions 1.The left ventricle is normal in size and systolic function. 2.Estimated left ventricular ejection fraction of 55%. 3.Mild concentric left ventricular hypertrophy. Grade 1 diastolic dysfunction. 4.Mechanical aortic valve prosthesis with mildly increased transvalvular gradient. Electronically Signed By: Lydia Ledbetter 24-Dec-2016 20:06:11 -0700 Patient Name: CANDICE WEBER Study Date: 24-Dec-2016 [id number]
[2016-12-24] MEDS: ATORVASTATIN 20 MG TAB PO SCH (21:10)
--- NOTE | 2016-12-24 21:22 | CONS ---
Date/Time of Note Date/Time of Note DATE: 12/24/16 TIME: 21:08 Assessment/Plan Assessment/Plan Chief Complaint/Hosp Course Assessment: Pre-operative cardiac evaluation - planned for left elbow surgery Acute left distal humerus fracture Status post mechanical fall Mechanical aortic valve replacement - mildly increased gradient, but otherwise well-seated with normal function on echocardiogram History of atrial fibrillation, status post radiofrequency ablation - currently sinus rhythm Hypertension Dyslipidemia Recommendations: -echocardiogram showed normal LVEF 55%, mild LVH with grade 1 diastolic dysfunction, mechanical aortic valve prosthesis with mildly increased gradient -chest x-ray without acute cardiopulmonary process -no evidence of unstable cardiac condition, optimized for surgery from cardiac standpoint -intermediate cardiac risk patient planned for moderate cardiac risk procedure -continue digoxin 0.25mg daily, digoxin level of 0.6 (12/24/2016) noted -continue statin -monitor blood pressure, resume on anti-hypertensive medications as needed -holding warfarin, resume when able to post-operatively Problems: Consultation Date/Type/Reason Admit Date/Time Dec 22, 2016 at 17:16 Initial Consult Date Type of Consultation: Cardiology 24 HR Interval Summary Free Text/Dictation No acute events. Denies chest pain or shortness of breath. Detailed Summary Additional Comments 14 point review of systems without changes. Exam/Review of Systems Vital Signs Vitals Vital Signs Date Time Temp Pulse Resp B/P Pulse Ox O2 Delivery O2 Flow Rate FiO2 12/24/16 14:00 98.7 85 18 113/72 97 12/22/16 21:00 Room Air Intake and Output 12/23/16 12/23/16 12/24/16 15:00 23:00 07:00 Intake Total 475 ml 650 ml 745 ml Output Total 800 ml 500 ml Balance 475 ml -150 ml 245 ml Exam Constitutional: alert, well developed Psych: nl mood/affect, no complaints Head: atraumatic, normocephalic Eyes: nl conjunctiva, nl lids ENMT: nl external ears & nose, nl nasal mucosa & septum Neck: non-tender, supple, No jvd Respiratory: clear to auscultation, normal air movement Cardiovascular: regular rate and rhythm Gastrointestinal: non-tender, soft Musculoskeletal: other (left arm in sling) Extremities: No clubbing, No cyanosis, No edema Results Result Diagram: 12/24/16 0524 12/24/16523 Results 24 hrs Laboratory Tests Test 12/24/16 05:24 12/24/16 16:35 White Blood Count 7.0 Red Blood Count 3.99 L Hemoglobin 13.0 L Hematocrit 37.3 L Mean Corpuscular Volume 93.5 Mean Corpuscular Hemoglobin 32.6 Mean Corpuscular Hemoglobin Concent 34.9 Red Cell Distribution Width 12.6 Platelet Count 141 Mean Platelet Volume 10.5 H Neutrophils % 71.2 Lymphocytes % 13.3 L Monocytes % 12.7 H Eosinophils % 2.3 Basophils % 0.1 Nucleated Red Blood Cells % 0.0 Neutrophils # 5.0 Lymphocytes # 0.9 Monocytes # 0.9 Eosinophils # 0.2 Basophils # 0.0 Nucleated Red Blood Cells # 0.0 Sodium Level 141 Potassium Level 3.9 Chloride Level 102 Carbon Dioxide Level 28 Anion Gap 15 Blood Urea Nitrogen 16 Creatinine 0.84 Glucose Level 100 Calcium Level 8.4 Digoxin Level 0.6 L Prothrombin Time 19.8 #H Prothrombin Time Ratio 1.5 INR International Normalized Ratio 1.67 Medications Medications Current Medications Ondansetron HCl (Zofran Inj) 4 mg Q6H PRN IV NAUSEA AND/OR VOMITING; Start 12/22 at 17:30 Acetaminophen (Tylenol Tab) 650 mg Q6H PRN PO PAIN LEVEL 1-3 OR FEVER; Start at 17:30 Acetaminophen/ Hydrocodone Bitart ([place] (5/325)) 1 tab Q6H PRN PO MODERATE PAIN LEVEL 4-6; Start 12/22/16 at 17:30 Docusate Sodium (Colace) 100 mg Q12H PRN PO CONSTIPATION; Start 12/22/16 at 17: 30 Magnesium Hydroxide (Milk Of Mag) 30 ml DAILY PRN PO CONSTIPATION; Start at 17:30 Sodium Biphosphate/ Sodium Phosphate (Fleet Enema) 133 ml DAILY PRN [place] CONSTIPATION; Start 12/22/16 at 17:30 Pantoprazole 40 mg 40 mg DAILY@06 PO Last administered on 12/24/16 05:12; Admin Dose 40 MG; Start 12/23/16 at 06:00 Sodium Chloride (1/2 NS) 1,000 ml @ 75 mls/hr [id number] IV Last administered on 12/24/16 18:16; Admin Dose 75 MLS/HR; Start 8/3/17 at 17:17 Lorazepam (Ativan) 0.5 mg Q6H PRN IV ANXIETY; Start 12/22/16 at 17:30 Hydralazine HCl (Apresoline) 10 mg Q6H PRN IV ELEVATED BLOOD PRESSURE; Start at 17:30 Nitroglycerin (Nitroglycerin (Sl Tab) 0.4 Mg) 1 tab Q5M PRN SL ANGINA; Start at 17:30 Digoxin (Digoxin) 0.25 mg DAILY PO Last administered on 12/24/16 08:12; Admin Dose 0.25 MG; Start 12/23/16 at 09:00 Atorvastatin Calcium (Lipitor) 20 mg DAILY@21 PO Last administered on 12/23/16 21:38; Admin Dose 20 MG; Start 12/22/16 at 21:00 Morphine Sulfate (morphine) 2 mg Q4H PRN IV SEVERE PAIN LEVEL 7-10 Last administered on 12/24/16 14:16; Admin Dose 2 MG; Start 12/24/16 at 12:00 LYDIA ELLISON MD Dec 24, 2016 21:20
[2016-12-25 02:00] VITALS: BP 116/69; RESP 20
[2016-12-25 05:40] LABS: BASOPHILS % 0.4 % (0.0-2.0); EOSINOPHILS # 0.2 10^3/ul (0.0-0.5); EOSINOPHILS % 3.1 % (0.0-7.0); HEMATOCRIT 37.1 % (42.0-52.0); HEMOGLOBIN 12.9 g/dl (14.0-18.0); LYMPHOCYTES # 0.9 10^3/ul (0.8-2.9); LYMPHOCYTES % 11.2 % (15.0-51.0); MEAN CORPUSCULAR HEMOGLOBIN 32.5 pg (29.0-33.0); MEAN CORPUSCULAR HGB CONC 34.8 g/dl (32.0-37.0); MEAN CORPUSCULAR VOLUME 93.5 fl (82.0-101.0); MEAN PLATELET VOLUME 10.6 fl (7.4-10.4); MONOCYTES % 12.8 % (0.0-11.0); NEUTROPHIL # 5.6 10^3/ul (1.6-7.5); PLATELET COUNT 140 10^3/UL (140-415); POSITIVE DIFF @See below; RED BLOOD COUNT 3.97 10^6/ul (4.70-6.10); RED CELL DISTRIBUTION WIDTH 12.4 % (11.5-14.5); WHITE BLOOD COUNT 7.8 10^3/ul (4.8-10.8)
[2016-12-25 05:51] LABS: INR 1.36; PROTIME 16.8 Sec (12.2-14.2); PT RATIO 1.3
[2016-12-25] MEDS: PANTOPRAZOLE (EC) 40 MG TAB PO SCH (06:07)
[2016-12-25] MEDS: morphine 2 MG INJ IV PRN ×4 (06:11→21:06)
[2016-12-25 06:22] LABS: CALCIUM 8.5 mg/dl (8.4-10.2); CREATININE 0.77 mg/dl (0.61-1.24)
[2016-12-25 08:14] VITALS: BP 112/65; RESP 18
[2016-12-25] MEDS: DIGOXIN 0.25 MG TAB PO SCH (09:12)
[2016-12-25] MEDS: SOD CHLORIDE 0.45% 1,000 ML IV SCH (11:46)
--- NOTE | 2016-12-25 13:11 | PN ---
Date/Time of Note Date/Time of Note DATE: 12/25/16 TIME: 13:06 Assessment/Plan VTE Prophylaxis VTE Prophylaxis Intervention: SCD's Lines/Catheters IV Catheter Type (from Nrs): Peripheral IV Urinary Cath still in place: No Assessment/Plan Chief Complaint/Hosp Course Assessment and plan: 66-year-old male history of valvular heart surgery, atrial fibrillation, on Coumadin, who presents status post fall with left elbow fracture, and on admission with supratherapeutic INR 2.68. 1. Status post fall with elbow fracture-getting morphine for pain control as needed. 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 This may complicate attempt to perform surgery, again we will try to finalize plan with orthopedic surgery team, -Continue pain control medications. -Regarding cardiac issues, appreciate cardiac consult. They have indicated patient is intermediate cardiac risk patient for moderate cardiac risk procedure. -continue to hold Coumadin for now, continue digoxin, follow-up INR. Follow- up echocardiogram 2. Supratherapeutic INR: 2.68 on admission, now down to 1.38 today, given vitamin K earlier this admission -Again, continue to hold patient's Coumadin for now. -Monitor INR in the a.m. 3. Atrial fibrillation: Monitor heart rate for now, as mentioned above holding Coumadin 4. History of valvular heart surgery: Monitor for now, holding Coumadin, see # 1 regarding cardiac clearance for any potential surgery 5. Hypertension: Continue current medications Problems: Subjective 24 Hr Interval Summary Free Text/Dictation Still having some left elbow pain issues. Seen by cardiology team and clearance was given for surgery. Otherwise no acute events overnight. Exam/Review of Systems Vital Signs Vitals Vital Signs Date Time Temp Pulse Resp B/P Pulse Ox O2 Delivery O2 Flow Rate FiO2 12/25/16 08:14 98.3 74 18 112/65 95 12/22/16 21:00 Room Air Intake and Output 12/24/16 12/24/16 12/25/16 15:00 23:00 07:00 Intake Total 2045 ml 1550 ml Output Total 1100 ml 500 ml Balance 945 ml 1050 ml Exam Gen: Alert, no acute distress Head: Atraumatic Eyes: Normal Conjunctiva, no pallor, no icterus ENT: Normal External Ears, Nose and Mouth. Moist mucous membranes Neck: Full range of motion..~ No meningismus. No midline tenderness Resp: Clear to auscultation bilaterally, no wheezes, no rales Cardio: Regular rate and rhythm, no murmurs Abd: Soft, non tender, non distended. Normal bowel sounds Back: No midline or flank tenderness Ext: No cyanosis, or edema. Left elbow covered in sling, skin appears intact. 2+ radial pulse. Moves and feels all digits. Neur: Awake and alert, cranial nerves II through XII intact bilaterally, strength and sensation full in 4 extremities. Psych: Normal Mood and Affect Results Result Diagram: 12/25/16 0454 12/25/16 0454 Results 24 hrs Laboratory Tests Test 12/24/16 16:35 12/25/16 04:54 Prothrombin Time 19.8 #H 16.8 H Prothrombin Time Ratio 1.5 1.3 INR International Normalized Ratio 1.67 1.36 White Blood Count 7.8 Red Blood Count 3.97 L Hemoglobin 12.9 L Hematocrit 37.1 L Mean Corpuscular Volume 93.5 Mean Corpuscular Hemoglobin 32.5 Mean Corpuscular Hemoglobin Concent 34.8 Red Cell Distribution Width 12.4 Platelet Count 140 Mean Platelet Volume 10.6 H Neutrophils % 72.0 Lymphocytes % 11.2 L Monocytes % 12.8 H Eosinophils % 3.1 Basophils % 0.4 Nucleated Red Blood Cells % 0.0 Neutrophils # 5.6 Lymphocytes # 0.9 Monocytes # 1.0 H Eosinophils # 0.2 Basophils # 0.0 Nucleated Red Blood Cells # 0.0 Sodium Level 140 Potassium Level 4.0 Chloride Level 102 Carbon Dioxide Level 27 Anion Gap 15 Blood Urea Nitrogen 16 Creatinine 0.77 Glucose Level 110 Calcium Level 8.5 Medications Medications Current Medications Ondansetron HCl (Zofran Inj) 4 mg Q6H PRN IV NAUSEA AND/OR VOMITING; Start 12/22 at 17:30 Acetaminophen (Tylenol Tab) 650 mg Q6H PRN PO PAIN LEVEL 1-3 OR FEVER; Start at 17:30 Acetaminophen/ Hydrocodone Bitart ([place] (5/325)) 1 tab Q6H PRN PO MODERATE PAIN LEVEL 4-6; Start 12/22/16 at 17:30 Docusate Sodium (Colace) 100 mg Q12H PRN PO CONSTIPATION; Start 12/22/16 at 17: 30 Magnesium Hydroxide (Milk Of Mag) 30 ml DAILY PRN PO CONSTIPATION; Start at 17:30 Sodium Biphosphate/ Sodium Phosphate (Fleet Enema) 133 ml DAILY PRN [place] CONSTIPATION; Start 12/22/16 at 17:30 Pantoprazole 40 mg 40 mg DAILY@06 PO Last administered on 12/25/16 06:07; Admin Dose 40 MG; Start 12/23/16 at 06:00 Sodium Chloride (1/2 NS) 1,000 ml @ 75 mls/hr [id number] IV Last administered on 12/25/16 11:46; Admin Dose 75 MLS/HR; Start 12/22/16 at 17:17 Lorazepam (Ativan) 0.5 mg Q6H PRN IV ANXIETY; Start 12/22/16 at 17:30 Hydralazine HCl (Apresoline) 10 mg Q6H PRN IV ELEVATED BLOOD PRESSURE; Start at 17:30 Nitroglycerin (Nitroglycerin (Sl Tab) 0.4 Mg) 1 tab Q5M PRN SL ANGINA; Start at 17:30 Digoxin (Digoxin) 0.25 mg DAILY PO Last administered on 12/25/16 09:12; Admin Dose 0.25 MG; Start 12/23/16 at 09:00 Atorvastatin Calcium (Lipitor) 20 mg DAILY@21 PO Last administered on 12/24/16 21:10; Admin Dose 20 MG; Start 12/22/16 at 21:00 Morphine Sulfate (morphine) 2 mg Q4H PRN IV SEVERE PAIN LEVEL 7-10 Last administered on 12/25/16 11:43; Admin Dose 2 MG; Start 12/24/16 at 12:00 Procedures Procedures 2D ECHO: normal LVEF 55%, mild LVH with grade 1 diastolic dysfunction, mechanical aortic valve prosthesis with mildly increased gradien ROGER JUÁREZ Dec 25, 2016 13:11
[2016-12-25 14:34] VITALS: BP 103/69; RESP 18
--- NOTE | 2016-12-25 18:43 | CONS ---
DATE OF ADMISSION: 12/22/2016 DATE OF CONSULTATION: 12/25/2016 HISTORY OF PRESENT ILLNESS: The patient is a 66-year-old, male who was admitted on December, when he was brought into the emergency room because of the painful swelling and deformity involving his right elbow. He obviously had sustained a ground level 4 on the day of his admission. He has multiple medical histories including history of heart disease, status post valvular cardiac surgery, atrial fibrillation on Coumadin, known history of osteogenesis imperfecta, history of massive elbow fracture as a child, which was treated nonsurgically. He is also known to have some degree of mental retardation. PHYSICAL EXAMINATION: My examination revealed the 66-year-old male, who was able to carry out a conversation. His left upper extremity was immobilized in a long-arm posterior splint. Limited evaluation did not show any signs of acute neurovascular compromise involving the left hand, however, because of the obvious pain, left elbow could not be examined in detail. IMAGING STUDIES: X-rays of the left elbow were somewhat difficult to figure out, however, it is obvious that some of the findings are from previous fracture, which was treated nonsurgically as a child and some of the findings might be the outcome of new fractures that he sustained at the time of the fall. DIAGNOSTIC IMPRESSION: New fracture superimposed on preexisting old deformities from old fracture involving the left elbow. TREATMENT PLAN: 1. Try to get x-rays of the left elbow prior to this recent trauma. 2. CT scan of the left elbow in order to understand the configuration of the fracture better. 3. Possible open reduction and internal fixation after getting further information if it is possible. According to the father, he had a considerable functional limitation of the left elbow prior to this new resent trauma. Dictated By: In Wen Maxwell MD /amrita/yeimi /Document#: [id number]
[2016-12-25] MEDS: ATORVASTATIN 20 MG TAB PO SCH (21:06)
[2016-12-25 21:46] VITALS: BP 117/67; RESP 16
[2016-12-26] MEDS: morphine 2 MG INJ IV PRN ×3 (01:06→13:58)
[2016-12-26] MEDS: SOD CHLORIDE 0.45% 1,000 ML IV SCH ×2 (01:07→13:12)
[2016-12-26 02:32] VITALS: BP 125/73; RESP 16
[2016-12-26] MEDS: PANTOPRAZOLE (EC) 40 MG TAB PO SCH (05:34)
[2016-12-26 06:08] LABS: INR 1.42; PROTIME 17.4 Sec (12.2-14.2); PT RATIO 1.4
[2016-12-26 06:17] LABS: BASOPHILS % 0.5 % (0.0-2.0); EOSINOPHILS # 0.3 10^3/ul (0.0-0.5); EOSINOPHILS % 4.1 % (0.0-7.0); HEMATOCRIT 31.5 % (42.0-52.0); LYMPHOCYTES # 0.8 10^3/ul (0.8-2.9); MEAN CORPUSCULAR HEMOGLOBIN 32.8 pg (29.0-33.0); MEAN CORPUSCULAR HGB CONC 34.9 g/dl (32.0-37.0); MEAN PLATELET VOLUME 10.6 fl (7.4-10.4); MONOCYTE # 0.8 10^3/ul (0.3-0.9); MONOCYTES % 11.4 % (0.0-11.0); NEUTROPHIL # 4.8 10^3/ul (1.6-7.5); NEUTROPHILS % 71.5 % (39.0-77.0); PLATELET COUNT 130 10^3/UL (140-415); RED BLOOD COUNT 3.35 10^6/ul (4.70-6.10); RED CELL DISTRIBUTION WIDTH 12.4 % (11.5-14.5); WHITE BLOOD COUNT 6.7 10^3/ul (4.8-10.8)
[2016-12-26 06:22] LABS: CALCIUM 7.5 mg/dl (8.4-10.2); CREATININE 0.7 mg/dl (0.61-1.24); POTASSIUM 3.6 mmol/L (3.5-5.1)
[2016-12-26 08:17] VITALS: BP 107/67; RESP 18
[2016-12-26] MEDS: DIGOXIN 0.25 MG TAB PO SCH (09:13)
--- NOTE | 2016-12-26 12:57 | PN ---
Date/Time of Note Date/Time of Note DATE: 12/26/16 TIME: 12:55 Assessment/Plan VTE Prophylaxis VTE Prophylaxis Intervention: SCD's Lines/Catheters IV Catheter Type (from Nrsg): Peripheral IV Urinary Cath still in place: No Assessment/Plan Assessment/Plan 1. Status post fall with elbow fracture-getting morphine for pain control as needed. 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 This may complicate attempt to perform surgery,plan for OR by In shell Maxwell possible today if OR permits. -Continue pain control medications. -Regarding cardiac issues, appreciate cardiac consult. They have indicated patient is intermediate cardiac risk patient for moderate cardiac risk procedure. -continue to hold Coumadin for now, continue digoxin, ECHO showded EF 55%, Grade I diastolic dysfunction- decrease IVF to 50 cc/hr 2. Supratherapeutic INR: 2.68 on admission, now down to 1.4 today, given vitamin K earlier this admission -Again, continue to hold patient's Coumadin for now. -Monitor INR in the a.m. 3. Atrial fibrillation: Monitor heart rate for now, as mentioned above holding Coumadin 4. History of valvular heart surgery: Monitor for now, holding Coumadin, see # 1 regarding cardiac clearance for any potential surgery 5. Hypertension: Continue current medications Exam/Review of Systems Vital Signs Vitals Vital Signs Date Time Temp Pulse Resp B/P Pulse Ox O2 Delivery O2 Flow Rate FiO2 12/26/16 08:17 98.6 78 18 107/67 98 12/22/16 21:00 Room Air Intake and Output 12/25/16 12/25/16 12/26/16 15:00 23:00 07:00 Intake Total 525 ml 1195 ml 1675 ml Output Total 775 ml 1250 ml Balance 525 ml 420 ml 425 ml Exam Gen: Alert, no acute distress Resp: Clear to auscultation bilaterally, no wheezes, no rales Cardio: Regular rate and rhythm, no murmurs Abd: Soft, non tender, non distended. Normal bowel sounds Back: No midline or flank tenderness Ext: No cyanosis, or edema. Left elbow covered in sling, skin appears intact. 2+ radial pulse. Moves and feels all digits. Neur: Awake and alert, cranial nerves II through XII intact bilaterally, strength and sensation full in 4 extremities. Psych: Normal Mood and Affect Constitutional: alert Results Result Diagram: 12/26/16 0520 12/26/16 0520 Results 24 hrs Laboratory Tests Test 12/26/16 05:20 White Blood Count 6.7 Red Blood Count 3.35 L Hemoglobin 11.0 L Hematocrit 31.5 L Mean Corpuscular Volume 94.0 Mean Corpuscular Hemoglobin 32.8 Mean Corpuscular Hemoglobin Concent 34.9 Red Cell Distribution Width 12.4 Platelet Count 130 L Mean Platelet Volume 10.6 H Neutrophils % 71.5 Lymphocytes % 12.0 L Monocytes % 11.4 H Eosinophils % 4.1 Basophils % 0.5 Nucleated Red Blood Cells % 0.0 Neutrophils # 4.8 Lymphocytes # 0.8 Monocytes # 0.8 Eosinophils # 0.3 Basophils # 0.0 Nucleated Red Blood Cells # 0.0 Prothrombin Time 17.4 H Prothrombin Time Ratio 1.4 INR International Normalized Ratio 1.42 Sodium Level 136 Potassium Level 3.6 Chloride Level 100 Carbon Dioxide Level 26 Anion Gap 14 Blood Urea Nitrogen 16 Creatinine 0.70 Glucose Level 105 Calcium Level 7.5 L Medications Medications Current Medications Ondansetron HCl (Zofran Inj) 4 mg Q6H PRN IV NAUSEA AND/OR VOMITING; Start 12/22 at 17:30 Acetaminophen (Tylenol Tab) 650 mg Q6H PRN PO PAIN LEVEL 1-3 OR FEVER; Start at 17:30 Acetaminophen/ Hydrocodone Bitart ([place] (5/325)) 1 tab Q6H PRN PO MODERATE PAIN LEVEL 4-6; Start 12/22/16 at 17:30 Docusate Sodium (Colace) 100 mg Q12H PRN PO CONSTIPATION; Start 12/22/16 at 17: 30 Magnesium Hydroxide (Milk Of Mag) 30 ml DAILY PRN PO CONSTIPATION; Start at 17:30 Sodium Biphosphate/ Sodium Phosphate (Fleet Enema) 133 ml DAILY PRN [place] CONSTIPATION; Start 12/22/16 at 17:30 Pantoprazole 40 mg 40 mg DAILY@06 PO Last administered on 12/25/16 06:07; Admin Dose 40 MG; Start 12/23/16 at 06:00 Sodium Chloride (1/2 NS) 1,000 ml @ 75 mls/hr [id number] IV Last administered on 12/26/16 01:07; Admin Dose 75 MLS/HR; Start 12/22/16 at 17:17 Lorazepam (Ativan) 0.5 mg Q6H PRN IV ANXIETY; Start 12/22/16 at 17:30 Hydralazine HCl (Apresoline) 10 mg Q6H PRN IV ELEVATED BLOOD PRESSURE; Start at 17:30 Nitroglycerin (Nitroglycerin (Sl Tab) 0.4 Mg) 1 tab Q5M PRN SL ANGINA; Start at 17:30 Digoxin (Digoxin) 0.25 mg DAILY PO Last administered on 12/26/16 09:13; Admin Dose 0.25 MG; Start 12/23/16 at 09:00 Atorvastatin Calcium (Lipitor) 20 mg DAILY@21 PO Last administered on 12/25/16 21:06; Admin Dose 20 MG; Start 12/22/16 at 21:00 Morphine Sulfate (morphine) 2 mg Q4H PRN IV SEVERE PAIN LEVEL 7-10 Last administered on 12/26/16 06:36; Admin Dose 2 MG; Start 12/24/16 at 12:00 CHELA MARKS MD Dec 26, 2016 12:57
[2016-12-26 14:00] VITALS: BP 112/60; RESP 18
[2016-12-26] MEDS ORDERED: SEVOFLURANE 15 MIN ONE (17:00)
--- NOTE | 2016-12-26 17:12 | HPN ---
Date/Time of Note Date/Time of Note DATE: 12/26/16 TIME: 17:11 Interval H&P Admission Note Pt. seen H&P reviewed: No system changes EDUARDO GAUTHIER MD Dec 26, 2016 17:12
[2016-12-26] MEDS ORDERED: MIDAZOLAM 1 MG/ML 2 ML INJ ONE (17:18)
[2016-12-26] MEDS ORDERED: FENTAnyl 50 MCG/ML VIAL IV PRN (17:30)
[2016-12-26] MEDS ORDERED: morphine (1 MG/ML) 10ML SYRINGE IV PRN (17:30)
[2016-12-26] MEDS ORDERED: NALOXONE (0.4 MG/ML) INJ IV PRN (17:30)
[2016-12-26] MEDS ORDERED: MEPERIDINE 25 MG INJ IV PRN (17:30)
[2016-12-26] MEDS ORDERED: ONDANSETRON 4 MG INJ IV PRN (17:30)
[2016-12-26] MEDS ORDERED: DIPHENHYDRAMINE 50 MG INJ IV PRN (17:30)
[2016-12-26] MEDS ORDERED: LABETALOL HCL 20MG INJ IV PRN (17:30)
[2016-12-26] MEDS ORDERED: PHENYLephrine (100 MCG/ML) 5ML SYG ONE (18:08)
[2016-12-26] MEDS ORDERED: POLYMYXIN/BACITRACIN 1L IRRIG IRR ONE (20:30)
[2016-12-26] MEDS: ATORVASTATIN 20 MG TAB PO SCH (21:00)
[2016-12-26] MEDS ORDERED: morphine 10 MG INJ ONE (22:41)
[2016-12-26] MEDS ORDERED: ONDANSETRON 4 MG INJ ONE (22:43)
[2016-12-26] MEDS ORDERED: ROCURONIUM 50 MG INJ ONE (22:43)
[2016-12-26] MEDS ORDERED: LIDOCAINE 2% (SDV) 5 ML INJ ONE (22:43)
[2016-12-26] MEDS ORDERED: ETOMIDATE 20 MG INJ ONE (22:43)
[2016-12-26] MEDS ORDERED: CEFAZOLIN 1 GM INJ ONE (22:44)
[2016-12-26] MEDS ORDERED: ROPIVACAINE 0.5 % 30 ML VIAL ONE (22:44)
[2016-12-26] MEDS ORDERED: D5W-0.45 NACL + KCL 20 MEQ 1,000 ML IV SCH (23:09)
--- NOTE | 2016-12-26 23:28 | OPR ---
Date/Time of Note Date/Time of Note DATE: 12/26/16 TIME: 23:22 Operative Report Preoperative Diagnosis supracondylar fracture of Left elbow Postoperative Diagnosis same as preop. Operation/Procedure Performed O.R.I.F. of supracondyolar fracture of Lt. elbow Surgeon: EDUARDO GAUTHIER MD Anesthesia Type: general Estimated Blood Loss: other Transfusion Required: no Specimen: none Grafts/Implants plate & screws Complications: no EDUARDO GAUTHIER MD Dec 26, 2016 23:28
[2016-12-26] MEDS ORDERED: NACL 0.9% 3 ML SYG IV SCH (23:30)
[2016-12-26] MEDS ORDERED: HYDROCODONE/APAP (5/325) TAB PO PRN (23:30)
--- NOTE | 2016-12-26 23:33 | RADRPT ---
PROCEDURE: Intraoperative imaging of the left elbow with fluoroscopy. CLINICAL INDICATION: Left elbow pain. Intraoperative. TECHNIQUE: 3 images of the left elbow were obtained in the operating room with an image intensifie r. No radiologist was in attendance. Fluoroscopy time is 23 seconds. COMPARISON: 12/22/2016. FINDINGS: Images demonstrate a posterior plate and multiple screws transfixing the distal humerus. IMPRESSION: 1. Intraoperative imaging of the left elbow. RPTAT: QQ .Albin August MD, MD Date Time Electronically viewed and signed by .Albin August MD, MD on 12/26/2016 23:32 .R/
[2016-12-26 23:40] VITALS: PULSE 104
[2016-12-27] VITALS (29 sets, daily range): BP systolic 86–123; BP diastolic 47–79; PULSE 80–124; RESP 12–27
--- NOTE | 2016-12-27 00:20 | RADRPT ---
PROCEDURE: XR Elbow. CLINICAL INDICATION: Trauma TECHNIQUE: AP, lateral and oblique views of the left elbow were performed. COMPARISON: 12/22/2016 FINDINGS: There has been interval internal fixation of the distal humerus fracture. Fragments are in improved alignment although some remain mild to moderately displaced. Multiple skin duane are noted. An o verlying splint is present. IMPRESSION: Interval internal fixation of a distal humerus fracture. RPTAT: HIKT .Neo Smith MD, MD Date Time Electronically viewed and signed by .Neo Smith MD, on 12/27/2016 00:20 .T/
[2016-12-27] MEDS: CEFAZOLIN 1 GM/50 ML (PMX) 50 ML IVPB SCH ×3 (00:33→14:47)
[2016-12-27 01:19] LABS: ABNORMAL IP MESSAGE 1; BASOPHILS % 0.2 % (0.0-2.0); EOSINOPHILS # 0.2 10^3/ul (0.0-0.5); EOSINOPHILS % 0.9 % (0.0-7.0); HEMOGLOBIN 11.3 g/dl (14.0-18.0); LYMPHOCYTES % 5.4 % (15.0-51.0); MEAN CORPUSCULAR HEMOGLOBIN 32.4 pg (29.0-33.0); MEAN CORPUSCULAR HGB CONC 34.2 g/dl (32.0-37.0); MEAN CORPUSCULAR VOLUME 94.6 fl (82.0-101.0); MEAN PLATELET VOLUME 10.7 fl (7.4-10.4); MONOCYTE # 2.2 10^3/ul (0.3-0.9); MONOCYTES % 11.6 % (0.0-11.0); NEUTROPHIL # 15.2 10^3/ul (1.6-7.5); NEUTROPHILS % 81.5 % (39.0-77.0); PLATELET COUNT 253 10^3/UL (140-415); POSITIVE DIFF @See below; RED BLOOD COUNT 3.49 10^6/ul (4.70-6.10); RED CELL DISTRIBUTION WIDTH 12.5 % (11.5-14.5); WHITE BLOOD COUNT 18.6 10^3/ul (4.8-10.8)
[2016-12-27 01:46] LABS: CALCIUM 8.1 mg/dl (8.4-10.2); CREATININE 0.82 mg/dl (0.61-1.24); POTASSIUM 4.5 mmol/L (3.5-5.1)
--- NOTE | 2016-12-27 04:47 | OPR ---
DATE OF OPERATION: 12/26/2016 PREOPERATIVE DIAGNOSIS: Supracondylar fracture of the left humerus at the left elbow. POSTOPERATIVE DIAGNOSIS: Supracondylar fracture of the left humerus at the left elbow. OPERATION PERFORMED: Open reduction and internal fixation of the supracondylar fracture of the left elbow. ANESTHESIA: General. SURGEON: Subha Maxwell MD OPERATIVE PROCEDURE: Under general anesthesia, the patient was placed in the prone position with the right elbow hanging over the edge of the bed. Usual prep and drape was done, exposing the left elbow. A tourniquet which was placed on the proximal portion of the left arm was inflated up to 250 mmHg prior to the procedure. The supracondylar area of the left elbow was approached through the posterior longitudinal incision over the arm and elbow, and extending downward. By blunt and sharp dissection, the supracondylar area was exposed and examination revealed the following: There, obviously, was a comminuted supracondylar fracture with considerable comminution segmentation. The entire supracondylar area of the left elbow was abnormal with the malunion and possible nonunion. After further dissection through the triceps splitting incision, the area of the fracture was exposed. After initial reduction, the reduction was maintained with the K-wires and then internal fixation was carried out using posterolateral plates. An attempt was made to put additional medial plate; however, because of the pre-existing abnormality, it was extremely difficult and the attempt was abandoned. At the end of the internal fixation, the alignment of the fracture was satisfactory in the area of the supracondylar fracture and the position of the fixation device was proper. It was noted during the preop evaluation under anesthesia, he was having a considerable limit of motion with the extension, limited to 90 degrees. After the internal fixation and after irrigation and hemostasis, closure of the incision was carried out using 0- Vicryl followed by 2-0 Vicryl for subcutaneous tissues. Final skin closure was carried out with skin duane. Usual sterile pressure dressings were applied. At the end of the procedure, the entire left upper extremity was immobilized in a posterior splint with the elbow in 90 degrees of flexion. The patient tolerated the entire procedure very well and was sent to the recovery room in excellent condition. Dictated By: In Wen Maxwell MD /amrita/wesley /Document#: [id number]
[2016-12-27 05:37] LABS: ABNORMAL IP MESSAGE 1; BASOPHILS % 0.1 % (0.0-2.0); HEMATOCRIT 29.9 % (42.0-52.0); HEMOGLOBIN 10.1 g/dl (14.0-18.0); LYMPHOCYTES # 0.4 10^3/ul (0.8-2.9); LYMPHOCYTES % 2.6 % (15.0-51.0); MEAN CORPUSCULAR HEMOGLOBIN 31.9 pg (29.0-33.0); MEAN CORPUSCULAR HGB CONC 33.8 g/dl (32.0-37.0); MEAN CORPUSCULAR VOLUME 94.3 fl (82.0-101.0); MEAN PLATELET VOLUME 10.8 fl (7.4-10.4); MONOCYTE # 1.9 10^3/ul (0.3-0.9); MONOCYTES % 13.9 % (0.0-11.0); NEUTROPHIL # 11.5 10^3/ul (1.6-7.5); NEUTROPHILS % 82.9 % (39.0-77.0); PLATELET COUNT 198 10^3/UL (140-415); POSITIVE DIFF @See below; RED BLOOD COUNT 3.17 10^6/ul (4.70-6.10); RED CELL DISTRIBUTION WIDTH 12.5 % (11.5-14.5); WHITE BLOOD COUNT 13.9 10^3/ul (4.8-10.8)
[2016-12-27 05:49] LABS: INR 1.52; PROTIME 18.4 Sec (12.2-14.2); PT RATIO 1.4
[2016-12-27 05:50] LABS: PARTIAL THROMBOPLASTIN TIME 29.2 Sec (25.0-35.0)
[2016-12-27] MEDS: PANTOPRAZOLE (EC) 40 MG TAB PO SCH (06:00)
[2016-12-27 06:07] LABS: ALBUMIN 2.9 g/dl (3.3-4.9); ALBUMIN/GLOBULIN RATIO 1.07; BILIRUBIN,INDIRECT 0.8 mg/dl (0-1.1); BILIRUBIN,TOTAL 0.8 mg/dl (0.2-1.3); CALCIUM 8.1 mg/dl (8.4-10.2); CREATININE 0.87 mg/dl (0.61-1.24); POTASSIUM 5.3 mmol/L (3.5-5.1); TOTAL PROTEIN 5.6 g/dl (6.1-8.1)
[2016-12-27] MEDS: morphine 2 MG INJ IV PRN ×3 (06:26→22:38)
[2016-12-27] MEDS ORDERED: DEXTROSE 5%-0.45% NACL 500 ML BAG IV SCH (09:00)
[2016-12-27] MEDS: DIGOXIN 0.25 MG TAB PO SCH (09:02)
[2016-12-27] MEDS: DEXTROSE 5%-0.45% NACL 1,000 ML IV SCH ×3 (09:04→22:31)
--- NOTE | 2016-12-27 10:52 | PN ---
Date/Time of Note Date/Time of Note DATE: 12/27/16 TIME: 10:46 Assessment/Plan VTE Prophylaxis VTE Prophylaxis Intervention: SCD's (coumadin on hold ), other Lines/Catheters IV [facility] Peripheral IV Urinary Cath still in place: No Assessment/Plan Assessment/Plan 1. Status post fall with elbow fracture - s/p Open reduction and internal fixation of the supracondylar fracture of the left elbow. POD # 1 -continue to hold Coumadin for now, continue digoxin, ECHO showded EF 55%, Grade I diastolic dysfunction- change IVF to 70 cc/hr 2. Supratherapeutic INR: 2.68 on admission,- now improved, coumadin on hold, S/ p vitamin K for reveral of INR 3. Atrial fibrillation: Monitor heart rate for now, as mentioned above holding Coumadin 4. History of valvular heart surgery: Monitor for now, holding Coumadin, ECHo showed normal EF 55%, grade I DD- cardiology following , Toilet Attendant to decide for resumption of coumadin post surgically. 5. Hypertension: Continue current medications 6. Hyperkalemia K 5.3- kayexalate 15 gram po x 1 dose today at 12 pm Transfer to med/surge floor Subjective 24 Hr Interval Summary Free Text/Dictation s/p Surgery by Ortho, remained stable in ICU, Bp stable< K 5.3, on IVF Exam/Review of Systems Vital Signs Vitals Vital Signs Date Time Temp Pulse Resp B/P Pulse Ox O2 Delivery O2 Flow Rate FiO2 12/27/16 09:00 91 26 108/77 100 Nasal Cannula 12/27/16 08:00 98.0 12/27/16 06:00 4.0 Intake and Output 12/26/16 12/26/16 12/27/16 15:00 23:00 07:00 Intake Total 600 ml 1400 ml 600 ml Output Total 1450 ml 225 ml Balance 600 ml -50 ml 375 ml Exam Gen: Alert, no acute distress Resp: Clear to auscultation bilaterally, no wheezes, no rales Cardio: Regular rate and rhythm, no murmurs Abd: Soft, non tender, non distended. Normal bowel sounds Back: No midline or flank tenderness Ext: No cyanosis, or edema. Left elbow covered in sling, skin appears intact. 2+ radial pulse. Moves and feels all digits.left forearm dressing Neur: Awake and alert, cranial nerves II through XII intact bilaterally, strength and sensation full in 4 extremities. Psych: Normal Mood and Affect Constitutional: alert Results Result Diagram: 12/27/16 0512 12/27/16 0512 Results 24 hrs Laboratory Tests Test 12/27/16 00:42 12/27/16 05:12 White Blood Count 18.6 #H 13.9 #H Red Blood Count 3.49 L 3.17 L Hemoglobin 11.3 L 10.1 L Hematocrit 33.0 L 29.9 L Mean Corpuscular Volume 94.6 94.3 Mean Corpuscular Hemoglobin 32.4 31.9 Mean Corpuscular Hemoglobin Concent 34.2 33.8 Red Cell Distribution Width 12.5 12.5 Platelet Count 253 # 198 # Mean Platelet Volume 10.7 H 10.8 H Neutrophils % 81.5 H 82.9 H Lymphocytes % 5.4 L 2.6 L Monocytes % 11.6 H 13.9 H Eosinophils % 0.9 0.0 Basophils % 0.2 0.1 Nucleated Red Blood Cells % 0.0 0.0 Neutrophils # 15.2 H 11.5 H Lymphocytes # 1.0 0.4 L Monocytes # 2.2 H 1.9 H Eosinophils # 0.2 0.0 Basophils # 0.0 0.0 Nucleated Red Blood Cells # 0.0 0.0 Sodium Level 139 139 Potassium Level 4.5 5.3 H Chloride Level 97 100 Carbon Dioxide Level 28 30 Anion Gap 19 H 14 Blood Urea Nitrogen 18 18 Creatinine 0.82 0.87 Glucose Level 182 255 H Calcium Level 8.1 L 8.1 L Prothrombin Time 18.4 H Prothrombin Time Ratio 1.4 INR International Normalized Ratio 1.52 Activated Partial Thromboplast Time 29.2 Total Bilirubin 0.8 Direct Bilirubin 0.00 Indirect Bilirubin 0.8 Aspartate Amino Transf (AST/SGOT) 38 Alanine Aminotransferase (ALT/SGPT) 33 Alkaline Phosphatase 61 Total Protein 5.6 L Albumin 2.9 L Globulin 2.70 Albumin/Globulin Ratio 1.07 Medications Medications Current Medications Ondansetron HCl (Zofran Inj) 4 mg Q6H PRN IV NAUSEA AND/OR VOMITING; Start 12/22 at 17:30 Acetaminophen (Tylenol Tab) 650 mg Q6H PRN PO PAIN LEVEL 1-3 OR FEVER; Start at 17:30 Acetaminophen/ Hydrocodone Bitart ([place] (5/325)) 1 tab Q6H PRN PO MODERATE PAIN LEVEL 4-6; Start 12/22/16 at 17:30 Docusate Sodium (Colace) 100 mg Q12H PRN PO CONSTIPATION; Start 12/22/16 at 17: 30 Magnesium Hydroxide (Milk Of Mag) 30 ml DAILY PRN PO CONSTIPATION; Start at 17:30 Sodium Biphosphate/ Sodium Phosphate (Fleet Enema) 133 ml DAILY PRN [place] CONSTIPATION; Start 12/22/16 at 17:30 Pantoprazole 40 mg 40 mg DAILY@06 PO Last administered on 12/25/16 06:07; Admin Dose 40 MG; Start 12/23/16 at 06:00 Sodium Chloride (1/2 NS) 1,000 ml @ 50 mls/hr Q20H IV Last administered on 12/26 13:12; Admin Dose 50 MLS/HR; Start 12/22/16 at 17:17 Lorazepam (Ativan) 0.5 mg Q6H PRN IV ANXIETY; Start 12/22/16 at 17:30 Hydralazine HCl (Apresoline) 10 mg Q6H PRN IV ELEVATED BLOOD PRESSURE; Start at 17:30 Nitroglycerin (Nitroglycerin (Sl Tab) 0.4 Mg) 1 tab Q5M PRN SL ANGINA; Start at 17:30 Digoxin (Digoxin) 0.25 mg DAILY PO Last administered on 12/27/16 09:02; Admin Dose 0.25 MG; Start 12/23/16 at 09:00 Atorvastatin Calcium (Lipitor) 20 mg DAILY@21 PO Last administered on 12/25/16 21:06; Admin Dose 20 MG; Start 12/22/16 at 21:00 Morphine Sulfate (morphine) 2 mg Q4H PRN IV SEVERE PAIN LEVEL 7-10 Last administered on 12/27/16 06:26; Admin Dose 2 MG; Start 12/24/16 at 12:00 Naloxone HCl 0.2 mg 0.2 mg Q2M PRN IV FOR RESP RATE 8 OR LESS; Start 12/26/16 at 17:30 Cefazolin Sodium (Ancef 1 Gm/50 ml (Pmx)) 50 ml @ 100 mls/hr Q8H IVPB Last administered on 12/27/16 09:02; Admin Dose 100 MLS/HR; Start 12/26/16 at 23:30; Stop 12/27/16 at 15:59 Morphine Sulfate (morphine) 3 mg Q3H PRN IV PAIN; Start 12/26/16 at 23:30 Acetaminophen/ Hydrocodone Bitart 1 tab 1 tab Q3H PRN PO PAIN; Start 12/26/16 at 23:30 Dextrose/Sodium Chloride (D5-1/2ns) 1,000 ml @ 100 mls/hr Q10H IV Last administered on 12/27/16 09:04; Admin Dose 100 MLS/HR; Start 12/27/16 at 09:00 CHELA MARKS MD Dec 27, 2016 10:52
[2016-12-27] MEDS ORDERED: NA POLYST SULFON 15 GM/60 ML BTL PO ONE (12:00)
[2016-12-27] MEDS: morphine 4 MG/ML VIAL IV PRN (18:33)
--- NOTE | 2016-12-27 19:43 | CONS ---
Date/Time of Note Date/Time of Note DATE: 12/27/16 TIME: 19:41 Assessment/Plan Assessment/Plan Chief Complaint/Hosp Course Assessment: Pre-operative cardiac evaluation - now post-operative Acute left distal humerus fracture - status post surgery 12/27/2016 Status post mechanical fall Mechanical aortic valve replacement - mildly increased gradient, but otherwise well-seated with normal function on echocardiogram History of atrial fibrillation, status post radiofrequency ablation - currently sinus rhythm Hypertension Dyslipidemia Recommendations: -echocardiogram showed normal LVEF 55%, mild LVH with grade 1 diastolic dysfunction, mechanical aortic valve prosthesis with mildly increased gradient -continue digoxin 0.25mg daily, digoxin level of 0.6 (12/24/2016) noted -continue statin -monitor blood pressure, resume on anti-hypertensive medications as needed -resume warfarin with goal INR 2-3 when able to post-operatively Problems: Consultation Date/Type/Reason Admit Date/Time Dec 22, 2016 at 17:16 Type of Consultation: Cardiology 24 HR Interval Summary Free Text/Dictation Status post left elbow surgery today. Doing well post-operatively. Detailed Summary Additional Comments 14 point review of systems without changes. Exam/Review of Systems Vital Signs Vitals Vital Signs Date Time Temp Pulse Resp B/P Pulse Ox O2 Delivery O2 Flow Rate FiO2 12/27/16 13:53 98.8 106 18 114/69 99 12/27/16 13:00 Nasal Cannula 4.0 Intake and Output 12/26/16 12/26/16 12/27/16 15:00 23:00 07:00 Intake Total 600 ml 1400 ml 600 ml Output Total 1450 ml 225 ml Balance 600 ml -50 ml 375 ml Exam Constitutional: alert, well developed Psych: nl mood/affect, no complaints Head: atraumatic, normocephalic Eyes: nl conjunctiva, nl lids ENMT: nl external ears & nose, nl nasal mucosa & septum Neck: non-tender, supple, No jvd Respiratory: clear to auscultation, normal air movement Cardiovascular: regular rate and rhythm Gastrointestinal: non-tender, soft Musculoskeletal: other (left arm in sling) Extremities: No clubbing, No cyanosis, No edema Results Result Diagram: 12/27/1612 12/27/16 0512 Results 24 hrs Laboratory Tests Test 12/27/16 00:42 12/27/16 05:12 White Blood Count 18.6 #H 13.9 #H Red Blood Count 3.49 L 3.17 L Hemoglobin 11.3 L 10.1 L Hematocrit 33.0 L 29.9 L Mean Corpuscular Volume 94.6 94.3 Mean Corpuscular Hemoglobin 32.4 31.9 Mean Corpuscular Hemoglobin Concent 34.2 33.8 Red Cell Distribution Width 12.5 12.5 Platelet Count 253 # 198 # Mean Platelet Volume 10.7 H 10.8 H Neutrophils % 81.5 H 82.9 H Lymphocytes % 5.4 L 2.6 L Monocytes % 11.6 H 13.9 H Eosinophils % 0.9 0.0 Basophils % 0.2 0.1 Nucleated Red Blood Cells % 0.0 0.0 Neutrophils # 15.2 H 11.5 H Lymphocytes # 1.0 0.4 L Monocytes # 2.2 H 1.9 H Eosinophils # 0.2 0.0 Basophils # 0.0 0.0 Nucleated Red Blood Cells # 0.0 0.0 Sodium Level 139 139 Potassium Level 4.5 5.3 H Chloride Level 97 100 Carbon Dioxide Level 28 30 Anion Gap 19 H 14 Blood Urea Nitrogen 18 18 Creatinine 0.82 0.87 Glucose Level 182 255 H Calcium Level 8.1 L 8.1 L Prothrombin Time 18.4 H Prothrombin Time Ratio 1.4 INR International Normalized Ratio 1.52 Activated Partial Thromboplast Time 29.2 Total Bilirubin 0.8 Direct Bilirubin 0.00 Indirect Bilirubin 0.8 Aspartate Amino Transf (AST/SGOT) 38 Alanine Aminotransferase (ALT/SGPT) 33 Alkaline Phosphatase 61 Total Protein 5.6 L Albumin 2.9 L Globulin 2.70 Albumin/Globulin Ratio 1.07 Medications Medications Current Medications Ondansetron HCl (Zofran Inj) 4 mg Q6H PRN IV NAUSEA AND/OR VOMITING; Start 12/22 at 17:30 Acetaminophen (Tylenol Tab) 650 mg Q6H PRN PO PAIN LEVEL 1-3 OR FEVER; Start at 17:30 Acetaminophen/ Hydrocodone Bitart ([place] (5/325)) 1 tab Q6H PRN PO MODERATE PAIN LEVEL 4-6; Start 12/22/16 at 17:30 Docusate Sodium (Colace) 100 mg Q12H PRN PO CONSTIPATION; Start 12/22/16 at 17: 30 Magnesium Hydroxide (Milk Of Mag) 30 ml DAILY PRN PO CONSTIPATION; Start at 17:30 Sodium Biphosphate/ Sodium Phosphate (Fleet Enema) 133 ml DAILY PRN [place] CONSTIPATION; Start 12/22/16 at 17:30 Pantoprazole (Protonix Tab) 40 mg DAILY@06 PO Last administered on 12/25/16 06: 07; Admin Dose 40 MG; Start 12/23/16 at 06:00 Lorazepam (Ativan) 0.5 mg Q6H PRN IV ANXIETY; Start 12/22/16 at 17:30 Hydralazine HCl (Apresoline) 10 mg Q6H PRN IV ELEVATED BLOOD PRESSURE; Start at 17:30 Nitroglycerin (Nitroglycerin (Sl Tab) 0.4 Mg) 1 tab Q5M PRN SL ANGINA; Start at 17:30 Digoxin (Digoxin) 0.25 mg DAILY PO Last administered on 12/27/16 09:02; Admin Dose 0.25 MG; Start 12/23/16 at 09:00 Atorvastatin Calcium (Lipitor) 20 mg DAILY@21 PO Last administered on 12/25/16 21:06; Admin Dose 20 MG; Start 12/22/16 at 21:00 Morphine Sulfate (morphine) 2 mg Q4H PRN IV SEVERE PAIN LEVEL 7-10 Last administered on 12/27/16 11:29; Admin Dose 2 MG; Start 12/24/16 at 12:00 Naloxone HCl (Narcan) 0.2 mg Q2M PRN IV FOR RESP RATE 8 OR LESS; Start 12/26/16 at 17:30 Morphine Sulfate (morphine) 3 mg Q3H PRN IV PAIN Last administered on 12/27/16 18:33; Admin Dose 3 MG; Start 12/26/16 at 23:30 Acetaminophen/ Hydrocodone Bitart 1 tab 1 tab Q3H PRN PO PAIN; Start 12/26/16 at 23:30 Dextrose/Sodium Chloride (D5-1/2ns) 1,000 ml @ 70 mls/hr [id number] IV Last administered on 12/27/16 12:44; Admin Dose 70 MLS/HR; Start 12/27/16 at 09:00 LYDIA ELLISON MD Dec 27, 2016 19:43
[2016-12-27] MEDS: ATORVASTATIN 20 MG TAB PO SCH (21:16)
--- NOTE | 2016-12-27 22:07 | PN ---
DATE: 12/27/2016 SUBJECTIVE DATA: First postop day. OBJECTIVE DATA: Afebrile with stable vital signs. Postop x-ray revealed satisfactory alignment of the fracture and proper position of the fixation device. No signs of neurovascular compromise involving the left hand. Postop H and H is 10.1/29.9. Dictated By: In Wen Maxwell MD /amrita/franny /Document#: [id number]
[2016-12-28 02:00] VITALS: BP 105/67; RESP 18
[2016-12-28] MEDS: DEXTROSE 5%-0.45% NACL 1,000 ML IV SCH (03:27)
[2016-12-28] MEDS: PANTOPRAZOLE (EC) 40 MG TAB PO SCH (05:35)
[2016-12-28 06:35] LABS: BASOPHILS % 0.1 % (0.0-2.0); EOSINOPHILS % 0.3 % (0.0-7.0); HEMATOCRIT 22.6 % (42.0-52.0); HEMOGLOBIN 7.7 g/dl (14.0-18.0); LYMPHOCYTES # 0.8 10^3/ul (0.8-2.9); LYMPHOCYTES % 7.2 % (15.0-51.0); MEAN CORPUSCULAR HEMOGLOBIN 31.7 pg (29.0-33.0); MEAN CORPUSCULAR HGB CONC 34.1 g/dl (32.0-37.0); MEAN PLATELET VOLUME 10.5 fl (7.4-10.4); MONOCYTE # 1.5 10^3/ul (0.3-0.9); MONOCYTES % 13.5 % (0.0-11.0); NEUTROPHIL # 8.4 10^3/ul (1.6-7.5); NEUTROPHILS % 78.3 % (39.0-77.0); PLATELET COUNT 150 10^3/UL (140-415); RED BLOOD COUNT 2.43 10^6/ul (4.70-6.10); RED CELL DISTRIBUTION WIDTH 12.3 % (11.5-14.5); WHITE BLOOD COUNT 10.8 10^3/ul (4.8-10.8)
[2016-12-28 07:10] LABS: CREATININE 0.72 mg/dl (0.61-1.24); POTASSIUM 3.6 mmol/L (3.5-5.1)
[2016-12-28 07:28] VITALS: BP 101/58; RESP 18
[2016-12-28] MEDS: DIGOXIN 0.25 MG TAB PO SCH (09:15)
[2016-12-28 13:48] VITALS: BP 99/54; RESP 18
[2016-12-28] MEDS: morphine 4 MG/ML VIAL IV PRN ×2 (14:38→22:45)
--- NOTE | 2016-12-28 16:50 | PN ---
Date/Time of Note Date/Time of Note DATE: 12/28/16 TIME: 16:49 Assessment/Plan VTE Prophylaxis VTE Prophylaxis Intervention: SCD's Lines/Catheters IV Catheter Type (from Nrs): Peripheral IV Urinary Cath still in place: No Assessment/Plan Assessment/Plan 1. Status post fall with elbow fracture - s/p Open reduction and internal fixation of the supracondylar fracture of the left elbow. POD # 1 -continue to hold Coumadin for now, continue digoxin, ECHO showded EF 55%, Grade I diastolic dysfunction- change IVF to 70 cc/hr 2. Supratherapeutic INR: 2.68 on admission,- now improved, coumadin on hold, S/ p vitamin K for reveral of INR 3. Atrial fibrillation: Monitor heart rate for now, as mentioned above holding Coumadin 4. History of valvular heart surgery: Monitor for now, holding Coumadin, ECHo showed normal EF 55%, grade I DD- cardiology following , Call Center Director to decide for resumption of coumadin post surgically. 5. Hypertension: Continue current medications coumadin on hold, D/c IV fluids, BP stable, afebrile Case management for SNF placement Transfer to med/surge floor Subjective 24 Hr Interval Summary Free Text/Dictation Hb 7.7, c/o pain, HR [id number], BP stable Exam/Review of Systems Vital Signs Vitals Vital Signs Date Time Temp Pulse Resp B/P Pulse Ox O2 Delivery O2 Flow Rate FiO2 12/28/16 14:00 Nasal Cannula 3.0 12/28/16 13:48 98.4 110 18 99/54 100 Intake and Output 12/27/16 12/27/16 12/28/16 15:00 23:00 07:00 Intake Total 350 ml 1340 ml 1315 ml Output Total 400 ml 550 ml 400 ml Balance -50 ml 790 ml 915 ml Results Result Diagram: 12/28/16 0601 12/28/16 0601 Results 24 hrs Laboratory Tests Test 12/28/16 06:01 White Blood Count 10.8 # Red Blood Count 2.43 #L Hemoglobin 7.7 #L Hematocrit 22.6 #L Mean Corpuscular Volume 93.0 Mean Corpuscular Hemoglobin 31.7 Mean Corpuscular Hemoglobin Concent 34.1 Red Cell Distribution Width 12.3 Platelet Count 150 # Mean Platelet Volume 10.5 H Neutrophils % 78.3 H Lymphocytes % 7.2 L Monocytes % 13.5 H Eosinophils % 0.3 Basophils % 0.1 Nucleated Red Blood Cells % 0.0 Neutrophils # 8.4 H Lymphocytes # 0.8 Monocytes # 1.5 H Eosinophils # 0.0 Basophils # 0.0 Nucleated Red Blood Cells # 0.0 Sodium Level 139 Potassium Level 3.6 Chloride Level 100 Carbon Dioxide Level 32 H Anion Gap 11 Blood Urea Nitrogen 15 Creatinine 0.72 Glucose Level 149 # Calcium Level 8.0 L Digoxin Level 0.7 L Medications Medications Current Medications Ondansetron HCl (Zofran Inj) 4 mg Q6H PRN IV NAUSEA AND/OR VOMITING; Start 12/22 at 17:30 Acetaminophen (Tylenol Tab) 650 mg Q6H PRN PO PAIN LEVEL 1-3 OR FEVER; Start at 17:30 Acetaminophen/ Hydrocodone Bitart ([place] (5/325)) 1 tab Q6H PRN PO MODERATE PAIN LEVEL 4-6 Last administered on 12/28/16 05:35; Admin Dose 1 TAB; Start 12/22 at 17:30 Docusate Sodium (Colace) 100 mg Q12H PRN PO CONSTIPATION Last administered on 21:16; Admin Dose 100 MG; Start 12/22/16 at 17:30 Magnesium Hydroxide (Milk Of Mag) 30 ml DAILY PRN PO CONSTIPATION; Start at 17:30 Sodium Biphosphate/ Sodium Phosphate (Fleet Enema) 133 ml DAILY PRN [place] CONSTIPATION; Start 12/22/16 at 17:30 Pantoprazole (Protonix Tab) 40 mg DAILY@06 PO Last administered on 12/28/16 05: 35; Admin Dose 40 MG; Start 12/23/16 at 06:00 Lorazepam (Ativan) 0.5 mg Q6H PRN IV ANXIETY; Start 12/22/16 at 17:30 Hydralazine HCl (Apresoline) 10 mg Q6H PRN IV ELEVATED BLOOD PRESSURE; Start at 17:30 Nitroglycerin (Nitroglycerin (Sl Tab) 0.4 Mg) 1 tab Q5M PRN [place] ANGINA; Start at 17:30 Digoxin (Digoxin) 0.25 mg DAILY PO Last administered on 12/28/16 09:15; Admin Dose 0.25 MG; Start 12/23/16 at 09:00 Atorvastatin Calcium (Lipitor) 20 mg DAILY@21 PO Last administered on 12/27/16 21:16; Admin Dose 20 MG; Start 12/22/16 at 21:00 Morphine Sulfate (morphine) 2 mg Q4H PRN IV SEVERE PAIN LEVEL 7-10 Last administered on 12/27/16 22:38; Admin Dose 2 MG; Start 12/24/16 at 12:00 Naloxone HCl (Narcan) 0.2 mg Q2M PRN IV FOR RESP RATE 8 OR LESS; Start 12/26/16 at 17:30 Morphine Sulfate (morphine) 3 mg Q3H PRN IV PAIN Last administered on 12/28/16 14:38; Admin Dose 3 MG; Start 12/26/16 at 23:30 Acetaminophen/ Hydrocodone Bitart ([place] (5/325)) 1 tab Q3H PRN PO PAIN; Start 12/26/16 at 23:30 CHELA MARKS MD Dec 28, 2016 16:50
--- NOTE | 2016-12-28 17:06 | CONS ---
Date/Time of Note Date/Time of Note DATE: 12/28/16 TIME: 17:04 Assessment/Plan Assessment/Plan Chief Complaint/Hosp Course Assessment: Pre-operative cardiac evaluation - now post-operative Acute left distal humerus fracture - status post surgery 12/27/2016 Status post mechanical fall Mechanical aortic valve replacement - mildly increased gradient, but otherwise well-seated with normal function on echocardiogram History of atrial fibrillation, status post radiofrequency ablation - currently sinus rhythm History of hypertension Dyslipidemia Anemia - no obvious bleeding, monitor Recommendations: -echocardiogram showed normal LVEF 55%, mild LVH with grade 1 diastolic dysfunction, mechanical aortic valve prosthesis with mildly increased gradient -continue digoxin 0.25mg daily, digoxin level of 0.6 (12/24/2016) noted -continue statin -monitor blood pressure, resume on anti-hypertensive medications as needed -resume warfarin with goal INR 2-3 when able to post-operatively and hemoglobin stable Problems: Consultation Date/Type/Reason Admit Date/Time Dec 22, 2016 at 17:16 Type of Consultation: Cardiology 24 HR Interval Summary Free Text/Dictation Hgb dropped to 7.7. No obvious bleeding. Detailed Summary Additional Comments 14 point review of systems without changes. Exam/Review of Systems Vital Signs Vitals Vital Signs Date Time Temp Pulse Resp B/P Pulse Ox O2 Delivery O2 Flow Rate FiO2 12/28/16 14:00 Nasal Cannula 3.0 12/28/16 13:48 98.4 110 18 99/54 100 Intake and Output 12/27/16 12/27/16 12/28/16 15:00 23:00 07:00 Intake Total 350 ml 1340 ml 1315 ml Output Total 400 ml 550 ml 400 ml Balance -50 ml 790 ml 915 ml Exam Constitutional: alert, well developed Psych: nl mood/affect, no complaints Head: atraumatic, normocephalic Eyes: nl conjunctiva, nl lids ENMT: nl external ears & nose, nl nasal mucosa & septum Neck: non-tender, supple, No jvd Respiratory: clear to auscultation, normal air movement Cardiovascular: regular rate and rhythm Gastrointestinal: non-tender, soft Musculoskeletal: other (left arm in sling) Extremities: No clubbing, No cyanosis, No edema Results Result Diagram: 12/28/16 0601 12/28/16 0601 Results 24 hrs Laboratory Tests Test 12/28/16 06:01 White Blood Count 10.8 # Red Blood Count 2.43 #L Hemoglobin 7.7 #L Hematocrit 22.6 #L Mean Corpuscular Volume 93.0 Mean Corpuscular Hemoglobin 31.7 Mean Corpuscular Hemoglobin Concent 34.1 Red Cell Distribution Width 12.3 Platelet Count 150 # Mean Platelet Volume 10.5 H Neutrophils % 78.3 H Lymphocytes % 7.2 L Monocytes % 13.5 H Eosinophils % 0.3 Basophils % 0.1 Nucleated Red Blood Cells % 0.0 Neutrophils # 8.4 H Lymphocytes # 0.8 Monocytes # 1.5 H Eosinophils # 0.0 Basophils # 0.0 Nucleated Red Blood Cells # 0.0 Sodium Level 139 Potassium Level 3.6 Chloride Level 100 Carbon Dioxide Level 32 H Anion Gap 11 Blood Urea Nitrogen 15 Creatinine 0.72 Glucose Level 149 # Calcium Level 8.0 L Digoxin Level 0.7 L Medications Medications Current Medications Ondansetron HCl (Zofran Inj) 4 mg Q6H PRN IV NAUSEA AND/OR VOMITING; Start 12/22 at 17:30 Acetaminophen (Tylenol Tab) 650 mg Q6H PRN PO PAIN LEVEL 1-3 OR FEVER; Start at 17:30 Acetaminophen/ Hydrocodone Bitart ([place] (5/325)) 1 tab Q6H PRN PO MODERATE PAIN LEVEL 4-6 Last administered on 12/28/16 05:35; Admin Dose 1 TAB; Start 12/22 at 17:30 Docusate Sodium (Colace) 100 mg Q12H PRN PO CONSTIPATION Last administered on 21:16; Admin Dose 100 MG; Start 12/22/16 at 17:30 Magnesium Hydroxide (Milk Of Mag) 30 ml DAILY PRN PO CONSTIPATION; Start at 17:30 Sodium Biphosphate/ Sodium Phosphate (Fleet Enema) 133 ml DAILY PRN [place] CONSTIPATION; Start 12/22/16 at 17:30 Pantoprazole (Protonix Tab) 40 mg DAILY@06 PO Last administered on 12/28/16 05: 35; Admin Dose 40 MG; Start 12/23/16 at 06:00 Lorazepam (Ativan) 0.5 mg Q6H PRN IV ANXIETY; Start 12/22/16 at 17:30 Hydralazine HCl (Apresoline) 10 mg Q6H PRN IV ELEVATED BLOOD PRESSURE; Start at 17:30 Nitroglycerin (Nitroglycerin (Sl Tab) 0.4 Mg) 1 tab Q5M PRN SL ANGINA; Start at 17:30 Digoxin (Digoxin) 0.25 mg DAILY PO Last administered on 12/28/16 09:15; Admin Dose 0.25 MG; Start 12/23/16 at 09:00 Atorvastatin Calcium (Lipitor) 20 mg DAILY@21 PO Last administered on 12/27/16 21:16; Admin Dose 20 MG; Start 12/22/16 at 21:00 Morphine Sulfate (morphine) 2 mg Q4H PRN IV SEVERE PAIN LEVEL 7-10 Last administered on 12/27/16 22:38; Admin Dose 2 MG; Start 12/24/16 at 12:00 Naloxone HCl (Narcan) 0.2 mg Q2M PRN IV FOR RESP RATE 8 OR LESS; Start 12/26/16 at 17:30 Morphine Sulfate (morphine) 3 mg Q3H PRN IV PAIN Last administered on 12/28/16 14:38; Admin Dose 3 MG; Start 12/26/16 at 23:30 Acetaminophen/ Hydrocodone Bitart ([place] (5/325)) 1 tab Q3H PRN PO PAIN; Start 12/26/16 at 23:30 LYDIA ELLISON MD Dec 28, 2016 17:06
[2016-12-28] MEDS: morphine 2 MG INJ IV PRN (18:54)
[2016-12-28 20:00] VITALS: BP 106/57; RESP 20
[2016-12-28] MEDS: ATORVASTATIN 20 MG TAB PO SCH (20:29)
[2016-12-28] MEDS: MAGNESIUM HYDROXIDE 30ML CUP PO PRN (20:30)
--- NOTE | 2016-12-28 23:43 | PN ---
DATE: 12/28/2016 Second postop day, still has considerable pain. Afebrile. H and H is down to 7.7/22.6 today. No obvious neurovascular compromise. However, there is considerable swelling over the left upper extremity with extensive edema involving the left hand, unable to make any fist. OT was consulted for range of motion of the left hand. Left upper extremity was also elevated by having it from IV pole. Dictated By: In Wen Maxwell MD /amrita/franny /Document#: [id number]
[2016-12-29] MEDS: morphine 4 MG/ML VIAL IV PRN ×3 (02:03→21:37)
[2016-12-29 02:40] VITALS: BP 117/60; RESP 20
[2016-12-29] MEDS: PANTOPRAZOLE (EC) 40 MG TAB PO SCH (05:35)
[2016-12-29] MEDS: morphine 2 MG INJ IV PRN ×2 (05:35→18:18)
[2016-12-29 06:32] LABS: HEMATOCRIT 21.5 % (42.0-52.0); HEMOGLOBIN 7.2 g/dl (14.0-18.0); MEAN CORPUSCULAR HEMOGLOBIN 31.6 pg (29.0-33.0); MEAN CORPUSCULAR HGB CONC 33.5 g/dl (32.0-37.0); MEAN CORPUSCULAR VOLUME 94.3 fl (82.0-101.0); MEAN PLATELET VOLUME 10.8 fl (7.4-10.4); PLATELET COUNT 160 10^3/UL (140-415); RED BLOOD COUNT 2.28 10^6/ul (4.70-6.10); RED CELL DISTRIBUTION WIDTH 12.5 % (11.5-14.5); WHITE BLOOD COUNT 8.4 10^3/ul (4.8-10.8)
[2016-12-29 06:46] LABS: INR 1.44; PROTIME 17.6 Sec (12.2-14.2); PT RATIO 1.4
[2016-12-29 06:47] LABS: PARTIAL THROMBOPLASTIN TIME 42.8 Sec (25.0-35.0)
[2016-12-29 06:56] LABS: CALCIUM 8.1 mg/dl (8.4-10.2); CREATININE 0.71 mg/dl (0.61-1.24)
[2016-12-29 07:42] VITALS: BP 105/81; RESP 18
[2016-12-29 08:15] VITALS: BP 136/92; RESP 18
[2016-12-29] MEDS: DIGOXIN 0.25 MG TAB PO SCH (09:20)
[2016-12-29 10:52] LABS: BASOPHILS % 0.1 % (0.0-2.0); EOSINOPHILS # 0.2 10^3/ul (0.0-0.5); EOSINOPHILS % 2.1 % (0.0-7.0); LYMPHOCYTES # 0.9 10^3/ul (0.8-2.9); LYMPHOCYTES % 11.1 % (15.0-51.0); MONOCYTE # 0.9 10^3/ul (0.3-0.9); MONOCYTES % 10.1 % (0.0-11.0); NEUTROPHIL # 6.4 10^3/ul (1.6-7.5); NEUTROPHILS % 76.1 % (39.0-77.0)
--- NOTE | 2016-12-29 12:54 | CONS ---
Date/Time of Note Date/Time of Note DATE: 12/29/16 TIME: 12:53 Assessment/Plan Assessment/Plan Chief Complaint/Hosp Course Assessment: Pre-operative cardiac evaluation - now post-operative Acute left distal humerus fracture - status post surgery 12/27/2016 Status post mechanical fall Mechanical aortic valve replacement - mildly increased gradient, but otherwise well-seated with normal function on echocardiogram History of atrial fibrillation, status post radiofrequency ablation - currently sinus rhythm History of hypertension Dyslipidemia Anemia - no obvious bleeding, monitor Recommendations: -echocardiogram showed normal LVEF 55%, mild LVH with grade 1 diastolic dysfunction, mechanical aortic valve prosthesis with mildly increased gradient -continue digoxin 0.25mg daily, digoxin level of 0.6 (12/24/2016) noted -continue statin -monitor blood pressure, resume on anti-hypertensive medications as needed -resume warfarin with goal INR 2-3 when able to post-operatively and hemoglobin stable Problems: Consultation Date/Type/Reason Admit Date/Time Dec 22, 2016 at 17:16 Type of Consultation: Cardiology 24 HR Interval Summary Free Text/Dictation Still having some left arm pain. Complaining of constipation. Hgb 7.2, no obvious bleeding. Detailed Summary Additional Comments 14 point review of systems without changes. Exam/Review of Systems Vital Signs Vitals Vital Signs Date Time Temp Pulse Resp B/P Pulse Ox O2 Delivery O2 Flow Rate FiO2 12/29/16 08:15 12/29/16 07:42 97.8 18 95 12/28/16 20:10 Nasal Cannula 3.0 Intake and Output 12/28/16 12/28/16 12/29/16 15:00 23:00 07:00 Intake Total 630 ml 1760 ml 480 ml Output Total 750 ml 400 ml Balance 630 ml 1010 ml 80 ml Exam Constitutional: alert, well developed Psych: nl mood/affect, no complaints Head: atraumatic, normocephalic Eyes: nl conjunctiva, nl lids ENMT: nl external ears & nose, nl nasal mucosa & septum Neck: non-tender, supple, No jvd Respiratory: clear to auscultation, normal air movement Cardiovascular: regular rate and rhythm Gastrointestinal: non-tender, soft Musculoskeletal: other (left arm in sling) Extremities: No clubbing, No cyanosis, No edema Results Result Diagram: 12/29/16 0532 12/29/16 0532 Results 24 hrs Laboratory Tests Test 12/29/16 05:32 White Blood Count 8.4 # Red Blood Count 2.28 L Hemoglobin 7.2 L Hematocrit 21.5 L Mean Corpuscular Volume 94.3 Mean Corpuscular Hemoglobin 31.6 Mean Corpuscular Hemoglobin Concent 33.5 Red Cell Distribution Width 12.5 Platelet Count 160 Mean Platelet Volume 10.8 H Neutrophils % 76.1 Lymphocytes % 11.1 L Monocytes % 10.1 Eosinophils % 2.1 Basophils % 0.1 Nucleated Red Blood Cells % 0.0 Neutrophils # 6.4 Lymphocytes # 0.9 Monocytes # 0.9 Eosinophils # 0.2 Basophils # 0.0 Nucleated Red Blood Cells # 0.0 Prothrombin Time 17.6 H Prothrombin Time Ratio 1.4 INR International Normalized Ratio 1.44 Activated Partial Thromboplast Time 42.8 H Sodium Level 140 Potassium Level 4.0 Chloride Level 98 Carbon Dioxide Level 33 H Anion Gap 13 Blood Urea Nitrogen 18 Creatinine 0.71 Glucose Level 108 # Calcium Level 8.1 L Medications Medications Current Medications Ondansetron HCl (Zofran Inj) 4 mg Q6H PRN IV NAUSEA AND/OR VOMITING; Start 12/22 at 17:30 Acetaminophen (Tylenol Tab) 650 mg Q6H PRN PO PAIN LEVEL 1-3 OR FEVER; Start at 17:30 Acetaminophen/ Hydrocodone Bitart ([place] (5/325)) 1 tab Q6H PRN PO MODERATE PAIN LEVEL 4-6 Last administered on 12/28/16 05:35; Admin Dose 1 TAB; Start 12/22 at 17:30 Docusate Sodium (Colace) 100 mg Q12H PRN PO CONSTIPATION Last administered on 21:16; Admin Dose 100 MG; Start 12/22/16 at 17:30 Magnesium Hydroxide (Milk Of Mag) 30 ml DAILY PRN PO CONSTIPATION Last administered on 12/28/16 20:30; Admin Dose 30 ML; Start 12/22/16 at 17:30 Sodium Biphosphate/ Sodium Phosphate (Fleet Enema) 133 ml DAILY PRN [place] CONSTIPATION; Start 12/22/16 at 17:30 Pantoprazole (Protonix Tab) 40 mg DAILY@06 PO Last administered on 12/29/16 05 :35; Admin Dose 40 MG; Start 12/23/16 at 06:00 Lorazepam (Ativan) 0.5 mg Q6H PRN IV ANXIETY; Start 12/22/16 at 17:30 Hydralazine HCl (Apresoline) 10 mg Q6H PRN IV ELEVATED BLOOD PRESSURE; Start at 17:30 Nitroglycerin (Nitroglycerin (Sl Tab) 0.4 Mg) 1 tab Q5M PRN SL ANGINA; Start at 17:30 Digoxin (Digoxin) 0.25 mg DAILY PO Last administered on 12/29/16 09:20; Admin Dose 0.25 MG; Start 12/23/16 at 09:00 Atorvastatin Calcium (Lipitor) 20 mg DAILY@21 PO Last administered on 12/28/16 20:29; Admin Dose 20 MG; Start 12/22/16 at 21:00 Morphine Sulfate (morphine) 2 mg Q4H PRN IV SEVERE PAIN LEVEL 7-10 Last administered on 12/29/16 05:35; Admin Dose 2 MG; Start 12/24/16 at 12:00 Naloxone HCl (Narcan) 0.2 mg Q2M PRN IV FOR RESP RATE 8 OR LESS; Start 12/26/16 at 17:30 Morphine Sulfate (morphine) 3 mg Q3H PRN IV PAIN Last administered on 09:20; Admin Dose 3 MG; Start 12/26/16 at 23:30 Acetaminophen/ Hydrocodone Bitart ([place] (5/325)) 1 tab Q3H PRN PO PAIN; Start 12/26/16 at 23:30 LYDIA ELLISON MD Dec 29, 2016 12:54
[2016-12-29 13:10] LABS: EOSINOPHILS % (M) 1 % (0-7); GIANT THROMBO% (M) 1 % (0-0); MONOCYTES % (M) 6 % (0-11); PLATELET ESTIMATE NORMAL; POLYCHROMASIA 3+ (0-0)
[2016-12-29] MEDS: MAGNESIUM HYDROXIDE 30ML CUP PO PRN (13:34)
[2016-12-29 15:28] VITALS: BP 118/61; RESP 18
--- NOTE | 2016-12-29 17:48 | PN ---
Date/Time of Note Date/Time of Note DATE: 12/29/16 TIME: 17:46 Assessment/Plan VTE Prophylaxis VTE Prophylaxis Intervention: SCD's Lines/Catheters IV Catheter Type (from [facility]): Saline Lock Urinary Cath still in place: No Assessment/Plan Assessment/Plan 1. Status post fall with elbow fracture - s/p Open reduction and internal fixation of the supracondylar fracture of the left elbow. -continue to hold Coumadin for now, continue digoxin, ECHO showded EF 55%, Grade I diastolic dysfunction- change IVF to 70 cc/hr 2. Supratherapeutic INR: 2.68 on admission,- now improved, resume coumadin 3. Atrial fibrillation: Monitor heart rate for now, as mentioned above holding Coumadin 4. History of valvular heart surgery: Monitor for now, holding Coumadin, ECHo showed normal EF 55%, grade I DD- cardiology following , Contact Center Analyst to decide for resumption of coumadin post surgically. 5. Hypertension: Continue current medications coumadin on hold, D/c IV fluids, BP stable, afebrile Case management for SNF placement Subjective 24 Hr Interval Summary Free Text/Dictation Hb 7.2. doing ok, SNF placement in process Exam/Review of Systems Vital Signs Vitals Vital Signs Date Time Temp Pulse Resp B/P Pulse Ox O2 Delivery O2 Flow Rate FiO2 12/29/16 15:28 100.7 99 18 118/61 94 12/29/16 09:30 Nasal Cannula 3.0 Intake and Output 12/28/16 12/28/16 12/29/16 15:00 23:00 07:00 Intake Total 630 ml 1760 ml 480 ml Output Total 750 ml 400 ml Balance 630 ml 1010 ml 80 ml Exam Gen: Alert, no acute distress Resp: Clear to auscultation bilaterally, no wheezes, no rales Cardio: Regular rate and rhythm, no murmurs Abd: Soft, non tender, non distended. Normal bowel sounds Back: No midline or flank tenderness Ext: No cyanosis, or edema. left elbow Cast Neur: Awake and alert, cranial nerves II through XII intact bilaterally, strength and sensation full in 4 extremities. Psych: Normal Mood and Affect Results Result Diagram: 12/29/16 0532 12/29/16 0532 Results 24 hrs Laboratory Tests Test 12/29/16 05:32 White Blood Count 8.4 # Red Blood Count 2.28 L Hemoglobin 7.2 L Hematocrit 21.5 L Mean Corpuscular Volume 94.3 Mean Corpuscular Hemoglobin 31.6 Mean Corpuscular Hemoglobin Concent 33.5 Red Cell Distribution Width 12.5 Platelet Count 160 Mean Platelet Volume 10.8 H Neutrophils % 76.1 Segmented Neutrophils % (Manual) 77 Band Neutrophils % (Manual) 2 Lymphocytes % 11.1 L Lymphocytes % (Manual) 14 L Monocytes % 10.1 Monocytes % (Manual) 6 Eosinophils % 2.1 Eosinophils % (Manual) 1 Basophils % 0.1 Nucleated Red Blood Cells % 0.0 Neutrophils # 6.4 Neutrophils # (Manual) 6.5 Band Neutrophils # 0.1 Absolute Lymphocytes (Manual) 1.1 Lymphocytes # 0.9 Monocytes # 0.9 Absolute Monocytes (Manual) 0.5 Eosinophils # 0.2 Basophils # 0.0 Nucleated Red Blood Cells # 0.0 Thrombocytosis 1 H Platelet Estimate NORMAL Polychromasia 3+ Prothrombin Time 17.6 H Prothrombin Time Ratio 1.4 INR International Normalized Ratio 1.44 Activated Partial Thromboplast Time 42.8 H Sodium Level 140 Potassium Level 4.0 Chloride Level 98 Carbon Dioxide Level 33 H Anion Gap 13 Blood Urea Nitrogen 18 Creatinine 0.71 Glucose Level 108 # Calcium Level 8.1 L Medications Medications Current Medications Ondansetron HCl (Zofran Inj) 4 mg Q6H PRN IV NAUSEA AND/OR VOMITING; Start 12/22 at 17:30 Acetaminophen (Tylenol Tab) 650 mg Q6H PRN PO PAIN LEVEL 1-3 OR FEVER; Start at 17:30 Acetaminophen/ Hydrocodone Bitart ([place] (5/325)) 1 tab Q6H PRN PO MODERATE PAIN LEVEL 4-6 Last administered on 12/28/16 05:35; Admin Dose 1 TAB; Start 12/22 at 17:30 Docusate Sodium (Colace) 100 mg Q12H PRN PO CONSTIPATION Last administered on 21:16; Admin Dose 100 MG; Start 12/22/16 at 17:30 Magnesium Hydroxide (Milk Of Mag) 30 ml DAILY PRN PO CONSTIPATION Last administered on 12/29/16 13:34; Admin Dose 30 ML; Start 12/22/16 at 17:30 Sodium Biphosphate/ Sodium Phosphate (Fleet Enema) 133 ml DAILY PRN [place] CONSTIPATION; Start 12/22/16 at 17:30 Pantoprazole (Protonix Tab) 40 mg DAILY@06 PO Last administered on 12/29/16 05 :35; Admin Dose 40 MG; Start 12/23/16 at 06:00 Lorazepam (Ativan) 0.5 mg Q6H PRN IV ANXIETY; Start 12/22/16 at 17:30 Hydralazine HCl (Apresoline) 10 mg Q6H PRN IV ELEVATED BLOOD PRESSURE; Start at 17:30 Nitroglycerin (Nitroglycerin (Sl Tab) 0.4 Mg) 1 tab Q5M PRN SL ANGINA; Start at 17:30 Digoxin (Digoxin) 0.25 mg DAILY PO Last administered on 12/29/16 09:20; Admin Dose 0.25 MG; Start 12/23/16 at 09:00 Atorvastatin Calcium (Lipitor) 20 mg DAILY@21 PO Last administered on 12/28/16 20:29; Admin Dose 20 MG; Start 12/22/16 at 21:00 Morphine Sulfate (morphine) 2 mg Q4H PRN IV SEVERE PAIN LEVEL 7-10 Last administered on 12/29/16 05:35; Admin Dose 2 MG; Start 12/24/16 at 12:00 Naloxone HCl (Narcan) 0.2 mg Q2M PRN IV FOR RESP RATE 8 OR LESS; Start 12/26/16 at 17:30 Morphine Sulfate (morphine) 3 mg Q3H PRN IV PAIN Last administered on 09:20; Admin Dose 3 MG; Start 12/26/16 at 23:30 Acetaminophen/ Hydrocodone Bitart ([place] (5/325)) 1 tab Q3H PRN PO PAIN; Start 12/26/16 at 23:30 CHELA MARKS MD Dec 29, 2016 17:48
[2016-12-29] MEDS ORDERED: WARFARIN 3 MG TAB PO ONE (18:00)
[2016-12-29] MEDS: ATORVASTATIN 20 MG TAB PO SCH (20:19)
[2016-12-29 20:56] VITALS: BP 92/65; RESP 16
[2016-12-30] MEDS: morphine 2 MG INJ IV PRN ×2 (00:57→05:04)
[2016-12-30 03:44] VITALS: BP 97/60; RESP 16
[2016-12-30] MEDS: PANTOPRAZOLE (EC) 40 MG TAB PO SCH (05:04)
[2016-12-30 06:18] LABS: BASOPHILS % 0.1 % (0.0-2.0); EOSINOPHILS # 0.2 10^3/ul (0.0-0.5); EOSINOPHILS % 2.9 % (0.0-7.0); HEMATOCRIT 22.8 % (42.0-52.0); HEMOGLOBIN 7.7 g/dl (14.0-18.0); LYMPHOCYTES % 13.7 % (15.0-51.0); MEAN CORPUSCULAR HEMOGLOBIN 32.1 pg (29.0-33.0); MEAN CORPUSCULAR HGB CONC 33.8 g/dl (32.0-37.0); MEAN PLATELET VOLUME 10.4 fl (7.4-10.4); MONOCYTE # 0.6 10^3/ul (0.3-0.9); MONOCYTES % 8.8 % (0.0-11.0); NEUTROPHIL # 5.1 10^3/ul (1.6-7.5); NEUTROPHILS % 73.9 % (39.0-77.0); PLATELET COUNT 201 10^3/UL (140-415); RED CELL DISTRIBUTION WIDTH 12.6 % (11.5-14.5)
[2016-12-30 06:49] LABS: INR 1.3; PROTIME 16.3 Sec (12.2-14.2); PT RATIO 1.3
[2016-12-30 06:50] LABS: PARTIAL THROMBOPLASTIN TIME 41.8 Sec (25.0-35.0)
[2016-12-30 06:58] LABS: CALCIUM 8.3 mg/dl (8.4-10.2); CREATININE 0.67 mg/dl (0.61-1.24); POTASSIUM 4.1 mmol/L (3.5-5.1)
[2016-12-30 08:13] VITALS: BP 105/58; RESP 16
[2016-12-30] MEDS: DIGOXIN 0.25 MG TAB PO SCH (09:04)
[2016-12-30] MEDS: morphine 4 MG/ML VIAL IV PRN ×2 (10:41→14:31)
--- NOTE | 2016-12-30 12:24 | PN ---
Date/Time of Note Date/Time of Note DATE: 12/30/16 TIME: 12:23 Assessment/Plan VTE Prophylaxis VTE Prophylaxis Intervention: SCD's, other (coumadin ) Lines/Catheters IV Catheter Type (from [facility]): Saline Lock Urinary Cath still in place: No Assessment/Plan Assessment/Plan 1. Status post fall with elbow fracture - s/p Open reduction and internal fixation of the supracondylar fracture of the left elbow. -continue to hold Coumadin for now, continue digoxin, ECHO showded EF 55%, Grade I diastolic dysfunction- change IVF to 70 cc/hr 2. Supratherapeutic INR: 2.68 on admission,- now improved, resume coumadin 3. Atrial fibrillation: Monitor heart rate for now, as mentioned above holding Coumadin 4. History of valvular heart surgery: Monitor for now, holding Coumadin, ECHo showed normal EF 55%, grade I DD- cardiology following , Diesel Motor Mechanic to decide for resumption of coumadin post surgically. 5. Hypertension: Continue current medications coumadin on hold, D/c IV fluids, BP stable, afebrile Case management for SNF placement Subjective 24 Hr Interval Summary Free Text/Dictation afebrile, Hb 7.7, no othe comlaints Exam/Review of Systems Vital Signs Vitals Vital Signs Date Time Temp Pulse Resp B/P Pulse Ox O2 Delivery O2 Flow Rate FiO2 12/30/16 08:13 98.3 92 16 105/58 98 12/30/16 07:44 Nasal Cannula 2.0 Intake and Output 12/29/16 12/29/16 12/30/16 15:00 23:00 07:00 Intake Total 1260 ml 240 ml Output Total 700 ml 800 ml Balance 560 ml -560 ml Results Result Diagram: 12/30/16 0540 12/30/16 0540 Results 24 hrs Laboratory Tests Test 12/30/16 05:40 White Blood Count 7.0 Red Blood Count 2.40 L Hemoglobin 7.7 L Hematocrit 22.8 L Mean Corpuscular Volume 95.0 Mean Corpuscular Hemoglobin 32.1 Mean Corpuscular Hemoglobin Concent 33.8 Red Cell Distribution Width 12.6 Platelet Count 201 # Mean Platelet Volume 10.4 Neutrophils % 73.9 Lymphocytes % 13.7 L Monocytes % 8.8 Eosinophils % 2.9 Basophils % 0.1 Nucleated Red Blood Cells % 0.0 Neutrophils # 5.1 Lymphocytes # 1.0 Monocytes # 0.6 Eosinophils # 0.2 Basophils # 0.0 Nucleated Red Blood Cells # 0.0 Prothrombin Time 16.3 H Prothrombin Time Ratio 1.3 INR International Normalized Ratio 1.30 Activated Partial Thromboplast Time 41.8 H Sodium Level 140 Potassium Level 4.1 Chloride Level 99 Carbon Dioxide Level 31 Anion Gap 14 Blood Urea Nitrogen 17 Creatinine 0.67 Glucose Level 116 Calcium Level 8.3 L Medications Medications Current Medications Ondansetron HCl (Zofran Inj) 4 mg Q6H PRN IV NAUSEA AND/OR VOMITING; Start 12/22 at 17:30 Acetaminophen (Tylenol Tab) 650 mg Q6H PRN PO PAIN LEVEL 1-3 OR FEVER; Start at 17:30 Acetaminophen/ Hydrocodone Bitart ([place] (5/325)) 1 tab Q6H PRN PO MODERATE PAIN LEVEL 4-6 Last administered on 12/28/16 05:35; Admin Dose 1 TAB; Start 12/22 at 17:30 Docusate Sodium (Colace) 100 mg Q12H PRN PO CONSTIPATION Last administered on 21:16; Admin Dose 100 MG; Start 12/22/16 at 17:30 Magnesium Hydroxide (Milk Of Mag) 30 ml DAILY PRN PO CONSTIPATION Last administered on 12/29/16 13:34; Admin Dose 30 ML; Start 12/22/16 at 17:30 Sodium Biphosphate/ Sodium Phosphate (Fleet Enema) 133 ml DAILY PRN [place] CONSTIPATION Last administered on 12/29/16 18:17; Admin Dose 133 ML; Start 12/22 at 17:30 Pantoprazole (Protonix Tab) 40 mg DAILY@06 PO Last administered on 12/30/16 05 :04; Admin Dose 40 MG; Start 12/23/16 at 06:00 Lorazepam (Ativan) 0.5 mg Q6H PRN IV ANXIETY; Start 12/22/16 at 17:30 Hydralazine HCl (Apresoline) 10 mg Q6H PRN IV ELEVATED BLOOD PRESSURE; Start at 17:30 Nitroglycerin (Nitroglycerin (Sl Tab) 0.4 Mg) 1 tab Q5M PRN SL ANGINA; Start at 17:30 Digoxin (Digoxin) 0.25 mg DAILY PO Last administered on 12/30/16 09:04; Admin Dose 0.25 MG; Start 12/23/16 at 09:00 Atorvastatin Calcium (Lipitor) 20 mg DAILY@21 PO Last administered on 20:19; Admin Dose 20 MG; Start 12/22/16 at 21:00 Morphine Sulfate (morphine) 2 mg Q4H PRN IV SEVERE PAIN LEVEL 7-10 Last administered on 12/30/16 05:04; Admin Dose 2 MG; Start 12/24/16 at 12:00 Naloxone HCl (Narcan) 0.2 mg Q2M PRN IV FOR RESP RATE 8 OR LESS; Start 12/26/16 at 17:30 Morphine Sulfate (morphine) 3 mg Q3H PRN IV PAIN Last administered on 10:41; Admin Dose 3 MG; Start 12/26/16 at 23:30 Acetaminophen/ Hydrocodone Bitart ([place] (5/325)) 1 tab Q3H PRN PO PAIN; Start 12/26/16 at 23:30 Warfarin Sodium (Coumadin) 3 mg DAILY@17 PO ; Start 12/30/16 at 17:00 CHELA MARKS MD Dec 30, 2016 12:24
--- NOTE | 2016-12-30 12:25 | PDOCDIS ---
Discharge Instructions CONDITION Patient Condition: Good HOME CARE INSTRUCTIONS: Special Diet: regular diet ACTIVITY: Activity Restrictions: Slowly Increase Activity Rest between Activity Avoid heavy lifting Avoid Heavy Housework FOLLOW UP/APPOINTMENTS Follow-up Plan Follow up with physician at SNF. Follow up with orthopedic surgery [place] in 2-3 week. Follow up with architectural representative Dr.Stanley Calvillo in1-2 week. CHELA MARKS MD Dec 30, 2016 12:25
[2016-12-30 13:47] VITALS: BP 109/53; RESP 16
[2016-12-30] MEDS ORDERED: WARFARIN 3 MG TAB PO SCH (17:00)
--- NOTE | 2016-12-30 23:06 | DS ---
Date/Time of Note Date/Time of Note DATE: 12/30/16 TIME: 23:00 Discharge Summary Admission/Discharge Info Admit Date/Time Dec 22, 2016 at 17:16 Discharge Date/Time Dec 30, 2016 at 15:45 Discharge Diagnosis 1. Status post fall with elbow fracture - s/p Open reduction and internal fixation of the supracondylar fracture of the left elbow. ECHO showded EF 55%, Grade I diastolic dysfunction 2. Supratherapeutic INR: 2.68 due to couamdin 3. Atrial fibrillation, rate controlled with coreg, digoxin , goal INR 2-3 4. History of valvular heart surgery 5. Hypertension: Patient Condition: Good Consults Orthopedic Surgery DrDANNIELLE Sheriff, Cardiology Dr.Stanley Ledbetter Procedures Open reduction and internal fixation of the supracondylar fracture of the left elbow done by orthopedic Dr. Subha Sheriff Hx of Present Illness 66-year-old male past medical history of atrial fibrillation on Coumadin at home , valvular heart surgery, questionable high cholesterol, questionable hypertension, "brittle bone disease ", who presents status post fall. It is unclear if the patient was at home or at work, patient gives limited history, per ER documentation he apparently was at some kind of convalescent home and tripped and fell over the carpet. Denied any chest pain or palpitations or dizziness before or after the event. When he arrived to the ER, x-ray of the left elbow showed a comminuted, dorsally displaced and angulated fracture of the supracondylar/transcondylar region of the distal humerus. Orthopedic surgery team was consulted who are going to come and evaluate the patient. Patient also was found with an elevated INR of 2.68. No signs of any upper or lower GI bleeding. Hospital Course Pt presented s/p Fall, he had a left elbow fracture. He also has supratherapeutic INR due to coumadin( for atrial fibrillation, goal INR 2-3), his coumdin was stopped while being in hospital. he was evaluated by Cardiology Dr.Stably Ledbetter. he had a Ortho consulation by Dr. SUBHA sheriff, he underwent ORIF of left elbow fracture, his coumadin was resumed upon discharge and he was discharged to SNF for further rehab care. Home Meds Reported Medications Losartan Potassium* (Losartan Potassium*) 50 Mg Tablet, 50 MG PO DAILY, TAB 12/22/16 Simvastatin* (Zocor*) 40 Mg Tablet, 40 MG PO QHS, #30 TAB 12/22/16 Warfarin Sodium* (Coumadin*) 5 Mg Tablet, 5 MG PO DAILY, TAB 12/22/16 Digoxin* (Digitek*) 250 Mcg Tablet, 0.25 MG PO DAILY, TAB 12/22/16 Follow-up Plan Follow up with SNF physician in 1-2 days, Follow up with Orthopedic DrGoyo [place] in 1-2 week after discahrge Follow up with Cardiology as outpatient( he was seen by Dr.Stanly Ledbetter here in hospital) Primary Care Provider Not On Staff Doctor Time spent on discharge: > 30 minutes Pending Labs Laboratory Tests Test 12/30/16 05:40 White Blood Count 7.010^3/ul (4.8-10.8) Red Blood Count 2.4010^6/ul (4.70-6.10) Hemoglobin 7.7g/dl (14.0-18.0) Hematocrit 22.8% (42.0-52.0) Mean Corpuscular Volume 95.0fl (82.0-101.0) Mean Corpuscular Hemoglobin 32.1pg (29.0-33.0) Mean Corpuscular Hemoglobin Concent 33.8g/dl (32.0-37.0) Red Cell Distribution Width 12.6% (11.5-14.5) Platelet Count 73338^3/UL (140-415) Mean Platelet Volume 10.4fl (7.4-10.4) Neutrophils % 73.9% (39.0-77.0) Lymphocytes % 13.7% (15.0-51.0) Monocytes % 8.8% (0.0-11.0) Eosinophils % 2.9% (0.0-7.0) Basophils % 0.1% (0.0-2.0) Nucleated Red Blood Cells % 0.0/100WBC (0.0-0.0) Neutrophils # 5.110^3/ul (1.6-7.5) Lymphocytes # 1.010^3/ul (0.8-2.9) Monocytes # 0.610^3/ul (0.3-0.9) Eosinophils # 0.210^3/ul (0.0-0.5) Basophils # 0.010^3/ul (0.0-0.1) Nucleated Red Blood Cells # 0.010^3/ul (0.0-0.0) Prothrombin Time 16.3Sec (12.2-14.2) Prothrombin Time Ratio 1.3 INR International Normalized Ratio 1.30 Activated Partial Thromboplast Time 41.8Sec (25.0-35.0) Sodium Level 140mmol/L (135-144) Potassium Level 4.1mmol/L (3.5-5.1) Chloride Level 99mmol/L (97-110) Carbon Dioxide Level 31mmol/L (21-31) Anion Gap 14 (8-16) Blood Urea Nitrogen 17mg/dl (7-20) Creatinine 0.67mg/dl (0.61-1.24) Glucose Level 116mg/dl (70-220) Calcium Level 8.3mg/dl (8.4-10.2) CHELA MARKS MD Dec 30, 2016 23:06
== END 2016-12-30 15:45 | DRG 493 ==
LOC: E/R 13:18 → PP2 17:16 → ICU 12-26 23:56 → MS2 12-27 12:45
PROVIDERS: ADMIT Hospitalist; ATTEND Hospitalist
PROC: 0PSG04Z Reposition Left Humeral Shaft with Internal Fixation Device, Open Approach (ICD-10-PCS; principal; 2016-12-22)
DX: S42.422A Displaced comminuted supracondylar fracture without intercondylar fracture of left humerus, initial encounter for closed fracture (principal); D68.8 Other specified coagulation defects; I48.91 Unspecified atrial fibrillation; D64.9 Anemia, unspecified; W01.198A Fall on same level from slipping, tripping and stumbling with subsequent striking against other object, initial encounter; E87.5 Hyperkalemia; I10 Essential (primary) hypertension; E78.5 Hyperlipidemia, unspecified; Y92.009 Unspecified place in unspecified non-institutional (private) residence as the place of occurrence of the external cause; Z87.81 Personal history of (healed) traumatic fracture; Z95.2 Presence of prosthetic heart valve; Z79.02 Long term (current) use of antithrombotics/antiplatelets
CPT/HCPCS: 71010; 73200; 80048; 80053; 80061; 80162; 83036; 83735; 84100; 84439; 84443; 84484; 85025; 85610; 85730; 86850; 86900; 86901; 86920; 87081; 93005; 93306; 96372; 96374; 97167; J0690; J2250; J2270; J2370; J2405; J2795; J3010; J3480; J7042